=== PATIENT | female | born 1965 | race Caucasian/White ===

== ENCOUNTER → 2016-09-03 | Outpatient (CLI) | payer OTHER ==
--- NOTE | 2016-09-04 07:55 | XR ---
EXAMINATION TYPE: XR chest 2V DATE OF EXAM: 09/03/2016 3:50 PM COMPARISON: NONE HISTORY: Chest pain FINDINGS: The lungs are clear and there is no pneumothorax, pleural effusion, or focal pneumonia. Hypertrophi c and degenerative change of the spine noted. IMPRESSION: 1. No acute process.
== END | disposition home or self-care (01) ==
LOC: RADXRYALE 15:37
PROVIDERS: ATTEND Physician Assistant Medical
DX: R07.9 Chest pain, unspecified (principal)
CPT/HCPCS: 71020

== ENCOUNTER 2016-10-08 20:52 | Emergency (ER) | payer OTHER ==
[2016-10-08 21:57] VITALS: PULSE 72; TEMP 99.4
--- NOTE | 2016-10-08 22:06 | ED ---
General Adult HPI - General Chief complaint: Skin/Abscess/Foreign Body Stated complaint: Rash/Hand Time Seen by Provider: 10/08/16 21:55 Source: patient, RN notes reviewed Mode of arrival: ambulatory Limitations: no limitations - History of Present Illness Initial comments: This is a 50-year-old female presents with palmar erythema and pruritus extending to bilateral wrists 2 days. Patient states she noticed her palms were itchy yesterday and woke up today with her hands being swollen and slightly red on the palms and still itchy. Patient states she noticed the redness has spread to bilateral wrists on the volar side. Patient also noticed that she has some mild pain with swallowing. Patient denies any fever/chills, nausea/vomiting/diarrhea, shortness of breath. Patient denies any new medications, detergents or work exposures. Patient states the only thing new she tried was a new lotion 2 days ago. Patient states she has been taking Benadryl for this with no improvement. Patient's last dose of Benadryl was 7 PM tonight. Patient denies any recent fever, chills, shortness breath, chest pain, abdominal pain, nausea/vomiting/diarrhea, back pain, numbness, tingling, hematuria, headache, or visual changes, or any other complaints. - Related Data Home Medications Medication Instructions Recorded Confirmed Aspirin [Adult Low Dose Aspirin EC] 81 mg PO DAILY 10/08/16 10/08/16 Atorvastatin [Lipitor] 80 mg PO DAILY 10/08/16 10/08/16 Isosorbide Mononitrate ER [Imdur] 30 mg PO DAILY 10/08/16 10/08/16 Metoprolol Tartrate [Metoprolol 25 mg PO BID 10/08/16 10/08/16 Tartrate] Previous Rx's Medication Instructions Recorded Famotidine [Pepcid] 20 mg PO DAILY 3 Days 10/08/16 diphenhydrAMINE HCL [Benadryl] 25 mg PO TID 3 Days 10/08/16 predniSONE 20 mg PO DAILY 5 Days 10/08/16 Allergies Allergy/AdvReac Type Severity Reaction Status Date / Time cephalexin [From Keflex] Allergy Unknown Verified 10/08/16 21:57 Penicillins Allergy Rash/Hives Verified 10/08/16 21:57 Review of Systems ROS Statement: Those systems with pertinent positive or pertinent negative responses have been documented in the HPI. ROS Other: All systems not noted in ROS Statement are negative. Past Medical History Past Medical History: Hyperlipidemia, Hypertension History of Any Multi-Drug Resistant Organisms: None Reported Past Surgical History: Section, Orthopedic Surgery Past Psychological History: No Psychological Hx Reported Smoking Status: Current every day smoker Past Alcohol Use History: Rare Past Drug Use History: None Reported General Exam - General Exam Comments Initial Comments: General: The patient is awake and alert, in no distress, and does not appear acutely ill. Eye: Pupils are equal, round and reactive to light, extra-ocular movements are intact. No nystagmus. There is normal conjunctiva bilaterally. No signs of icterus. Ears: TMs pink and pearly with intact cone of light bilaterally. Normal external ear canals Nose: Nasal turbinates pink and moist Mouth and throat: There are moist mucous membranes and no oral lesions. Neck: The neck is supple, there is no tenderness or JVD. Cardiovascular: There is a regular rate and rhythm. No murmur, rub or gallop is appreciated. Respiratory: Lungs are clear to auscultation, respirations are non-labored, breath sounds are equal. No wheezes, stridor, rales, or rhonchi. Musculoskeletal: Normal ROM, no tenderness. Strength 5/5. Sensation intact. Radial Pulses equal bilaterally 2+. Neurological: A&O x 3. CN II-XII intact, There are no obvious motor or sensory deficits. Coordination appears grossly intact. Speech is normal. Skin: There is erythema to bilateral palms, erythema to the volar aspect of bilateral wrists, there are raised areas on the volar aspects of bilateral wrists that resemble urticaria. The areas of erythema are warm to touch and mildly tender. Skin is warm and dry. Psychiatric: Cooperative, appropriate mood & affect, normal judgment. Limitations: no limitations Course Vital Signs 10/08/16 21:54 Temperature 99.4 F Pulse Rate 72 Respiratory 18 Rate Blood Pressure 150/72 O2 Sat by Pulse 99 Oximetry Medical Decision Making - Medical Decision Making This is a 50 female presents with bilateral hand swelling and pruritus. On physical exam There is erythema to bilateral palms, erythema to the volar aspect of bilateral wrists, there are raised areas on the volar aspects of bilateral wrists that resemble urticaria. The areas of erythema are warm to touch and mildly tender. Skin is warm and dry. Patient was given Solu-Medrol, Benadryl and Pepcid IV and observed for worsening symptoms. Patient states she felt that the swelling and itching had decreased after these medications were given. Patient did not develop any shortness of breath or increased throat irritation during this time of observation. I discussed that patient will be sent home with a prescription for Benadryl, prednisone and Pepcid for the next 3 days. I discussed return parameters. I discussed avoidance of the possible trigger of a new lotion the patient used. I discussed cool soaks to the hands for itching. I discussed the patient should follow-up with her primary care physician in the next 1-2 days or return to the [facility] for any worsening symptoms or for any further concerns. Patient and her who was also present in the room were receptive to this plan and patient will be discharged home. I discussed this case with attending physician Dr. Yip who agrees with plan as stated above. Disposition Clinical Impression: Allergic reaction Disposition: HOME SELF-CARE Condition: Good Instructions: Urticaria (ED) Additional Instructions: Please use Benadryl, prednisone and Pepcid as prescribed. Please follow-up with family doctor in the next 2 days of symptoms have not improved. Please return to emergency room if the symptoms increase or worsen or for any other concerns. Prescriptions: Famotidine [Pepcid] 20 mg PO DAILY 3 Days diphenhydrAMINE HCL [Benadryl] 25 mg PO TID 3 Days predniSONE 20 mg PO DAILY 5 Days Time of Disposition: 23:59
[2016-10-08] MEDS ORDERED: diphenhydrAMINE 50 MG/ML 1 ML VIAL IVP STA (22:13)
[2016-10-08] MEDS ORDERED: methylPREDNISolone SOD SUCCI 125 MG/2 ML VIAL IV STA (22:13)
[2016-10-08] MEDS ORDERED: FAMOTIDINE 20 MG/2 ML VIAL IV STA (22:14)
[2016-10-09 00:17] VITALS: BP 125/58; RESP 16
== END 2016-10-09 00:15 | disposition home or self-care (01) ==
LOC: EC 20:52
DX: T78.40XA Allergy, unspecified, initial encounter (principal); L50.9 Urticaria, unspecified; X58.XXXA Exposure to other specified factors, initial encounter; I10 Essential (primary) hypertension; E78.5 Hyperlipidemia, unspecified; F17.200 Nicotine dependence, unspecified, uncomplicated; Z88.1 Allergy status to other antibiotic agents; Z79.899 Other long term (current) drug therapy; Z79.82 Long term (current) use of aspirin; Z88.0 Allergy status to penicillin
CPT/HCPCS: 99283; 96374; 96375; J1200; J2930

== ENCOUNTER 2016-10-10 18:13 | Emergency (ER) | payer OTHER ==
--- NOTE | 2016-10-10 20:58 | ED ---
Allergic Reaction HPI - General Chief complaint: Allergic Reaction Stated complaint: allergic reaction Time Seen by Provider: 10/10/16 20:23 Source: patient, RN notes reviewed Mode of arrival: ambulatory Limitations: no limitations - History of Present Illness Initial Comments: Patient is a 50-year-old female presents to the emergency room for evaluation of rash. Patient states on she tried a new lotion from [employer]. Patient states a few hours later both her palms became very itchy. Patient states throughout the day her bilateral hands became more and more swollen. Patient states that she came to the emergency room was given IV Solu- Medrol, Benadryl and Pepcid. Patient states the swelling subsided and she was sent home. Patient states that again her hands began swelling today so she went to her primary care provider. Patient states she was given an injection of steroids and was told that if the rash worsens to return to the emergency room. Patient also states she was placed on a prednisone taper for the next 2 weeks. Patient states her rash is now traveled up bilateral arms and on the back of her bilateral legs. Patient states she's tried cortisone cream and calamine lotion. Patient states the rash is very warm and itchy and irritating her. Patient denies new detergents, shampoos, medications. Patient denies any new plants or animals being introduced into the household. Patient denies new medications. Patient has shortness of breath, trouble breathing, headache, dizziness, chest pain, fevers, chills. - Related Data Home Medications Medication Instructions Recorded Confirmed Aspirin [Adult Low Dose Aspirin EC] 81 mg PO DAILY 10/08/16 10/08/16 Atorvastatin [Lipitor] 80 mg PO DAILY 10/08/16 10/08/16 Isosorbide Mononitrate ER [Imdur] 30 mg PO DAILY 10/08/16 10/08/16 Metoprolol Tartrate [Metoprolol 25 mg PO BID 10/08/16 10/08/16 Tartrate] Previous Rx's Medication Instructions Recorded Famotidine [Pepcid] 20 mg PO DAILY 3 Days 10/08/16 diphenhydrAMINE HCL [Benadryl] 25 mg PO TID 3 Days 10/08/16 predniSONE 20 mg PO DAILY 5 Days 10/08/16 hydrOXYzine HCL [Atarax] 25 mg PO QID PRN #30 tab 10/10/16 Allergies Allergy/AdvReac Type Severity Reaction Status Date / Time cephalexin [From Keflex] Allergy Unknown Verified 10/10/16 18:30 Penicillins Allergy Rash/Hives Verified 10/10/16 18:30 Review of Systems ROS Statement: Those systems with pertinent positive or pertinent negative responses have been documented in the HPI. ROS Other: All systems not noted in ROS Statement are negative. Past Medical History Past Medical History: Hyperlipidemia, Hypertension History of Any Multi-Drug Resistant Organisms: None Reported Past Surgical History: Section, Orthopedic Surgery Past Psychological History: No Psychological Hx Reported Smoking Status: Current every day smoker Past Alcohol Use History: Rare Past Drug Use History: None Reported General Exam - General Exam Comments Initial Comments: Sitting in exam room in no acute distress. Limitations: no limitations General appearance: alert, in no apparent distress Head exam: Present: atraumatic, normocephalic, normal inspection Eye exam: Present: normal appearance ENT exam: Present: normal exam Neck exam: Present: normal inspection Respiratory exam: Present: normal lung sounds bilaterally. Absent: respiratory distress Cardiovascular Exam: Present: regular rate, normal rhythm, normal heart sounds Back exam: Present: normal inspection Neurological exam: Present: alert, oriented X3, CN II-XII intact, normal gait Psychiatric exam: Present: normal affect, normal mood Skin exam: Present: erythema (Erythematous patches over bilateral arms and bilateral posterior portion of her legs) Course Vital Signs 10/10/16 10/10/16 18:28 22:00 Temperature 97.5 F L 98.7 F Pulse Rate 69 66 Respiratory 20 18 Rate Blood Pressure 126/64 123/61 O2 Sat by Pulse 98 96 Oximetry Medical Decision Making - Medical Decision Making Patient is a 50-year-old female presents to the emergency room for reevaluation of rash. Patient is already on a prednisone taper. Will switch patient from Benadryl to Atarax. Patient states she understands everything was discussed with her. Return parameters discussed. Disposition Clinical Impression: Contact dermatitis Disposition: HOME SELF-CARE Condition: Good Instructions: Contact Dermatitis (ED) Additional Instructions: Continue prednisone taper as directed. Begin taking Atarax as needed. Please follow up with primary care provider in 1-2 days. If any new symptom arises, symptoms worsen or fever develops, return to ER as soon as possible. Prescriptions: hydrOXYzine HCL [Atarax] 25 mg PO QID PRN #30 tab PRN Reason: Itching Referrals: Jamison Mercado DO [Primary Care Provider] - 1-2 days Time of Disposition: 21:46
[2016-10-10] MEDS ORDERED: hydrOXYzine HCL 25 MG TAB PO STA (21:06)
[2016-10-10 22:08] VITALS: BP 123/61; PULSE 66; RESP 18; TEMP 98.7
== END 2016-10-10 22:00 | disposition home or self-care (01) ==
LOC: EC 18:13
DX: L25.9 Unspecified contact dermatitis, unspecified cause (principal); E78.5 Hyperlipidemia, unspecified; I10 Essential (primary) hypertension; F17.200 Nicotine dependence, unspecified, uncomplicated; Z79.82 Long term (current) use of aspirin; Z79.899 Other long term (current) drug therapy; Z88.0 Allergy status to penicillin; Z88.1 Allergy status to other antibiotic agents
CPT/HCPCS: 99283

== ENCOUNTER 2016-10-12 11:08 | Emergency (ER) | payer OTHER ==
[2016-10-12] MEDS ORDERED: SODIUM CHLORIDE 0.9% 1,000 ML IV ONE (11:29)
[2016-10-12] MEDS ORDERED: METOCLOPRAMIDE 5 MG/ML 2 ML VIAL IVP STA (11:29)
[2016-10-12] MEDS ORDERED: methylPREDNISolone SOD SUCCI 125 MG/2 ML VIAL IV STA (11:29)
[2016-10-12] MEDS ORDERED: FAMOTIDINE 20 MG/2 ML VIAL IV STA (11:29)
--- NOTE | 2016-10-12 11:36 | ED ---
General Adult HPI - General Chief complaint: Allergic Reaction Stated complaint: Allergic Reaction Time Seen by Provider: 10/12/16 11:21 Source: patient Mode of arrival: EMS Limitations: no limitations - History of Present Illness Initial comments: This is a 50-year-old female who presents emergency department for hives, nausea , vomiting, and headache. She states that she's had the symptoms for the last 5 days. [facility] emergency department twice already for the rash and was diagnosed with ALLERGIC reaction. She states that she is not aware of what she is ALLERGIC to. She is ALLERGIC to penicillins however has not ingested any of these. She's been on steroids for the last 5 days. She's also been using Benadryl as needed. This morning she woke up at the rash again and then started developing headache, nausea, and vomiting. She's had come emergency department. She was given Benadryl and Zofran EMS rig which seemed to improve her symptoms mildly however she still is a little bit nausea. She denies any itching. She denies any difficulty with breathing or throat closing. She does admit to some mild epigastric abdominal pain. No dysuria or hematuria. No sick contacts. No recent travel. No other complaints. - Related Data Home Medications Medication Instructions Recorded Confirmed Aspirin [Adult Low Dose Aspirin EC] 81 mg PO DAILY 10/08/16 10/12/16 Atorvastatin [Lipitor] 80 mg PO HS 10/08/16 10/12/16 Isosorbide Mononitrate ER [Imdur] 30 mg PO DAILY 10/08/16 10/12/16 Metoprolol Tartrate [Metoprolol 25 mg PO BID 10/08/16 10/12/16 Tartrate] Multivit-Min/Fe Fum/FA/Vit K 1 cap PO DAILY 10/12/16 10/12/16 [Women's Multivatimin] Ranitidine HCl [Zantac] 150 mg PO BID 10/12/16 10/12/16 predniSONE See Taper PO DIRECTED 10/12/16 10/12/16 Previous Rx's Medication Instructions Recorded hydrOXYzine HCL [Atarax] 25 mg PO QID PRN #30 tab 10/10/16 Ondansetron Odt [Zofran Odt] 4 mg PO Q8HR PRN #15 tab 10/12/16 Allergies Allergy/AdvReac Type Severity Reaction Status Date / Time cephalexin [From Keflex] Allergy Rash/Hives Verified 10/12/16 12:11 Penicillins Allergy Rash/Hives Verified 10/12/16 12:11 Review of Systems ROS Statement: Those systems with pertinent positive or pertinent negative responses have been documented in the HPI. ROS Other: All systems not noted in ROS Statement are negative. Past Medical History Past Medical History: Hyperlipidemia, Hypertension History of Any Multi-Drug Resistant Organisms: None Reported Past Surgical History: Section, Orthopedic Surgery Past Psychological History: No Psychological Hx Reported Smoking Status: Current every day smoker Past Alcohol Use History: Rare Past Drug Use History: None Reported General Exam - General Exam Comments Initial Comments: Constitutional: Awake alert Appears comfortable Head: Normocephalic atraumatic Eyes: no conjunctival injection No scleral icterus EOMI, ENT: Oropharynx is nonedematous or erythematous Neck: No JVD Supple Heart: Regular rate rhythm normal S1-S2 no murmurs Lungs: Clear to auscultation bilaterally No wheezing No rales Abdomen: Soft nondistended nontender Extremities: Non edematous DP pulses intact Radial pulses intact, there are urticaria on bilateral upper and lower extremities Neuro: A&Ox3 No focal neurologic deficits Psych: Appropriate mood and affect Limitations: no limitations Course Vital Signs 10/12/16 10/12/16 11:15 14:06 Temperature 97.6 F 100.4 F H Pulse Rate 79 58 L Respiratory 16 18 Rate Blood Pressure 113/57 105/55 O2 Sat by Pulse 95 98 Oximetry Medical Decision Making - Medical Decision Making Is a 50-year-old female presents emergency department for hives, nausea, vomiting. Patient was evaluated with blood work which is unremarkable. Urinalysis was negative. She felt improved after medications in the ER and tolerated by mouth. At this time I feel the patient may not actually be suffering from an ALLERGIC reaction may be suffering from a viral illness. She did have a mild temperature upon discharge. I told her to continue with Motrin Tylenol, steroids, Benadryl, and I gave her Zofran that she can use as needed for vomiting. She is follow up closely with her primary doctor. She will return if she has worsening symptoms. All questions were answered. - Lab Data Result diagrams: 10/12/16 11:45 10/12/16 11:45 Lab Results 10/12/16 10/12/16 10/12/16 Range/Units 11:45 11:45 11:45 WBC 11.0 H (3.8-10.6) k/uL RBC 4.80 (3.80-5.40) m/uL Hgb 15.5 (11.4-16.0) gm/dL Hct 45.7 (34.0-46.0) % MCV 95.2 (80.0-100.0) fL MCH 32.4 (25.0-35.0) pg MCHC 34.0 (31.0-37.0) g/dL RDW 12.9 (11.5-15.5) % Plt Count 321 (150-450) k/uL Neutrophils % 86 % Lymphocytes % 11 % Monocytes % 1 % Eosinophils % 1 % Basophils % 0 % Neutrophils # 9.4 H (1.3-7.7) k/uL Lymphocytes # 1.2 (1.0-4.8) k/uL Monocytes # 0.1 (0-1.0) k/uL Eosinophils # 0.1 (0-0.7) k/uL Basophils # 0.0 (0-0.2) k/uL Sodium 141 (137-145) mmol/L Potassium 4.1 (3.5-5.1) mmol/L Chloride 107 (98-107) mmol/L Carbon Dioxide 26 (22-30) mmol/L Anion Gap 8 mmol/L BUN 22 H (7-17) mg/dL Creatinine 0.81 (0.52-1.04) mg/dL Est GFR (MDRD) Af Amer >60 (>60 ml/min/1.73 sqM) Est GFR (MDRD) Non-Af >60 (>60 ml/min/1.73 sqM) Glucose 122 H (74-99) mg/dL Calcium 8.4 (8.4-10.2) mg/dL Total Bilirubin 1.3 (0.2-1.3) mg/dL AST 14 (14-36) U/L ALT 34 (9-52) U/L Alkaline Phosphatase 72 (38-126) U/L Total Protein 6.1 L (6.3-8.2) g/dL Albumin 3.3 L (3.5-5.0) g/dL Amylase <30 L (30-110) U/L Lipase 19 L (23-300) U/L Urine Color Urine Appearance (Clear) Urine pH (5.0-8.0) Ur Specific Sparks (1.001-1.035) Urine Protein (Negative) Urine Glucose (UA) (Negative) Urine Ketones (Negative) Urine Blood (Negative) Urine Nitrate (Negative) Urine Bilirubin (Negative) Urine Urobilinogen (<2.0) mg/dL Ur Leukocyte Esterase (Negative) Urine RBC (0-5) /hpf Urine WBC (0-5) /hpf Ur Squamous Epith Cells (0-4) /hpf Urine Bacteria (None) /hpf Urine Mucus (None) /hpf 10/12/16 Range/Units 12:33 WBC (3.8-10.6) k/uL RBC (3.80-5.40) m/uL Hgb (11.4-16.0) gm/dL Hct (34.0-46.0) % MCV (80.0-100.0) fL MCH (25.0-35.0) pg MCHC (31.0-37.0) g/dL RDW (11.5-15.5) % Plt Count (150-450) k/uL Neutrophils % % Lymphocytes % % Monocytes % % Eosinophils % % Basophils % % Neutrophils # (1.3-7.7) k/uL Lymphocytes # (1.0-4.8) k/uL Monocytes # (0-1.0) k/uL Eosinophils # (0-0.7) k/uL Basophils # (0-0.2) k/uL Sodium (137-145) mmol/L Potassium (3.5-5.1) mmol/L Chloride (98-107) mmol/L Carbon Dioxide (22-30) mmol/L Anion Gap mmol/L BUN (7-17) mg/dL Creatinine (0.52-1.04) mg/dL Est GFR (MDRD) Af Amer (>60 ml/min/1.73 sqM) Est GFR (MDRD) Non-Af (>60 ml/min/1.73 sqM) Glucose (74-99) mg/dL Calcium (8.4-10.2) mg/dL Total Bilirubin (0.2-1.3) mg/dL AST (14-36) U/L ALT (9-52) U/L Alkaline Phosphatase (38-126) U/L Total Protein (6.3-8.2) g/dL Albumin (3.5-5.0) g/dL Amylase (30-110) U/L Lipase (23-300) U/L Urine Color Yellow Urine Appearance Clear (Clear) Urine pH 6.0 (5.0-8.0) Ur Specific [place] 1.020 (1.001-1.035) Urine Protein Trace H (Negative) Urine Glucose (UA) Negative (Negative) Urine Ketones Negative (Negative) Urine Blood Trace H (Negative) Urine Nitrate Negative (Negative) Urine Bilirubin Negative (Negative) Urine Urobilinogen <2.0 (<2.0) mg/dL Ur Leukocyte Esterase Moderate H (Negative) Urine RBC 3 (0-5) /hpf Urine WBC 2 (0-5) /hpf Ur Squamous Epith Cells 3 (0-4) /hpf Urine Bacteria Rare H (None) /hpf Urine Mucus Occasional H (None) /hpf Disposition Clinical Impression: Viral syndrome, Acute urticaria Disposition: HOME SELF-CARE Condition: Stable Instructions: Acute Nausea and Vomiting (ED), Urticaria (ED) Prescriptions: Ondansetron Odt [Zofran Odt] 4 mg PO Q8HR PRN #15 tab PRN Reason: Nausea Referrals: Jamison Mercado DO [Primary Care Provider] - 1-2 days
[2016-10-12 11:55] LABS: Basophils % (A) 0 %; CH 33.1; CHCM 34.8; Eosinophils # (A) 0.1 k/uL (0-0.7); Eosinophils % (A) 1 %; HCT 45.7 % (34.0-46.0); HDW 2.36; HGB 15.5 gm/dL (11.4-16.0); Luc # (Auto) 0.06; Luc % (Auto) 1; Lymphocytes # (A) 1.2 k/uL (1.0-4.8); Lymphocytes % (A) 11 %; MCH 32.4 pg (25.0-35.0); MCV 95.2 fL (80.0-100.0); Mean Platelet Volume 6.8; Monocytes # (A) 0.1 k/uL (0-1.0); Monocytes % (A) 1 %; Neutrophils # (A) 9.4 k/uL (1.3-7.7); Neutrophils % (A) 86 %; RDW 12.9 % (11.5-15.5); WBC (Perox) 11.06
[2016-10-12 12:09] LABS: ALT 34 U/L (9-52); AST 14 U/L (14-36); Alkaline Phosphatase 72 U/L (38-126); Anion Gap 8 mmol/L; Blood Urea Nitrogen 22 mg/dL (7-17); Calcium 8.4 mg/dL (8.4-10.2); Carbon Dioxide 26 mmol/L (22-30); Chloride 107 mmol/L (98-107); Glucose 122 mg/dL (74-99); Non-African American GFR(MDRD) >60 (>60 ml/min/1.73 sqM); Potassium 4.1 mmol/L (3.5-5.1); Sodium 141 mmol/L (137-145); Total Bilirubin 1.3 mg/dL (0.2-1.3); Total Protein 6.1 g/dL (6.3-8.2)
[2016-10-12 13:01] LABS: Appearance,Urine Clear (Clear); Bacteria,Urine Rare /hpf; Bilirubin,Urine Negative (Negative); Glucose,Urine (UA) Negative (Negative); Ketones,Urine Negative (Negative); Leukocyte Esterase,Urine Moderate (Negative); Mucus,Urine Occasional /hpf; Nitrite,Urine Negative (Negative); Particle Count 5132; Protein,Urine Trace (Negative); RBC,Urine 3 /hpf (0-5); Squamous Epithelial Cell,Urine 3 /hpf (0-4); UA Billing (MACRO vs. MICRO) MICRO; Urobilinogen,Urine <2.0 mg/dL (<2.0); WBC,Urine 2 /hpf (0-5)
[2016-10-12 14:09] VITALS: BP 105/55; PULSE 58; RESP 18; TEMP 100.4
== END 2016-10-12 14:06 | disposition home or self-care (01) ==
LOC: EC 11:08
DX: L50.9 Urticaria, unspecified (principal); B34.9 Viral infection, unspecified; R11.2 Nausea with vomiting, unspecified; R51 Headache; E78.5 Hyperlipidemia, unspecified; I10 Essential (primary) hypertension; F17.200 Nicotine dependence, unspecified, uncomplicated; Z79.82 Long term (current) use of aspirin; Z79.52 Long term (current) use of systemic steroids; Z79.899 Other long term (current) drug therapy
CPT/HCPCS: 99284; 96374; 96375 ×2; 96361; 36415; 80053; 82150; 83690; 85025; 81001; J2765; J2930

== ENCOUNTER → 2016-10-15 | Outpatient (CLI) | payer OTHER ==
[2016-10-16 08:17] LABS: Mis test requested (Blood) Glycerine IgE
[2016-10-16 13:38] LABS: Avocado Class CLASS 0; Banana IgE Class CLASS 0; Hazelnut IgE <0.35 kU/L (<0.35); Hazelnut IgE Class CLASS 0; Kiwi IgE <0.35 kU/L (<0.35); Kiwi IgE Class CLASS 0
[2016-10-16 13:39] LABS: Alternaria alternata IgE <0.35 kU/L (<0.35); Asperg. fumagatus IgE <0.35 kU/L (<0.35); Asperg. fumagatus IgE Class CLASS 0; Aureo. pullulans IgE <0.35 kU/L (<0.35); Birch(Com.Silvr) IgE Class CLASS 0; Candida albicans IgE Class CLASS 0; Cat Epith & Dander IgE <0.35 kU/L (<0.35); Cat Epith & Dander IgE Class CLASS 0; Clad herbarum IgE <0.35 kU/L (<0.35); Clad herbarum IgE Class CLASS 0; Com. Pigweed IgE <0.35 kU/L (<0.35); Com. Pigweed IgE Class CLASS 0; Common Ragweed IgE Class CLASS 0; Dermato. Pteronyssinus Class CLASS 0; Dermato. Pteronyssinus IgE <0.35 kU/L (<0.35); Dermato. farinae IgE <0.35 kU/L (<0.35); Dermato. farinae IgE Class CLASS 0; English Plantain IgE Class CLASS 0; Epicoccum purpurascens Class CLASS II; Epicoccum purpurascens IgE 0.76 kU/L (<0.35); Johnson Grass IgE Class CLASS 0; Lamb's Quarter IgE <0.35 kU/L (<0.35); Lamb's Quarter IgE Class CLASS 0; Maple (Box Elder) IgE <0.35 kU/L (<0.35); Maple (Box Elder) IgE Class CLASS 0; Mucor racemosus IgE 1.82 kU/L (<0.35); Mucor racemosus IgE Class CLASS II; Oak IgE <0.35 kU/L (<0.35); Rhizopus nigricans IgE 0.85 kU/L (<0.35); Rhizopus nigricans IgE Class CLASS II; S.rostrata/Helminth Class CLASS 0; S.rostrata/Helminth IgE <0.35 kU/L (<0.35); Sycamore(Mpl.Lf) IgE <0.35 kU/L (<0.35); Sycamore(Mpl.Lf) IgE Class CLASS 0; Timothy Grass IgE <0.35 kU/L (<0.35); Timothy Grass IgE Class CLASS 0; Walnut Tree IgE <0.35 kU/L (<0.35); White Ash IgE Class CLASS 0
== END | disposition home or self-care (01) ==
LOC: LABWHC1 14:23
PROVIDERS: ATTEND Otolaryngology
DX: J30.89 Other allergic rhinitis (principal); B44.89 Other forms of aspergillosis; D84.1 Defects in the complement system
CPT/HCPCS: 36415; 86003; 86160; 86161

== ENCOUNTER → 2017-02-09 | Outpatient (CLI) | payer OTHER ==
--- NOTE | 2017-02-09 11:18 | WWHP ---
DATE OF SERVICE: 02/09/2017 CHIEF COMPLAINT: The patient is here for her routine gynecologic exam and mammogram. HPI: This is a 51-year-old, G2, P2 with an LMP of 2014. The patient is without gynecologic complaints. PAST MEDICAL HISTORY: Elevated cholesterol and coronary artery disease. MEDICATIONS: 1. Aspirin 81 mg daily. 2. Imdur 30 mg daily. 3. Metoprolol tartrate 25 mg b.i.d. 4. Atorvastatin 80 mg daily. Allergies to PENICILLIN which caused hives. 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 SOCIAL HISTORY: She smokes about 1/2 pack of cigarettes per day. She has about 6 alcohol -containing drinks per month and denies drug use. She has been since 1988 and works at the [employer] FAMILY HISTORY: Sister was recently diagnosed with lung cancer. She has another sister who had breast cancer and mother who had ovarian and breast cancer. Paternal grandmother had heart disease. REVIEW OF SYSTEMS: She has gained 5 pounds over the last year. She denies respiratory, cardiac or GI problems. PHYSICAL EXAM: Blood pressure 116/75. Height 5 feet 4 inches. Weight 207 pounds. Temperature 98.5, pulse 56. This a well-developed, well-nourished white female who is alert and oriented x3 in no acute distress. HEENT is within normal limits. NECK: Supple without mass or thyromegaly. CHEST AND LUNGS: Clear to auscultation. HEART: Regular rate and rhythm. Breasts are without mass or discharge. Axillary exam is negative for adenopathy. BACK: Negative for CVA tenderness. ABDOMEN: Soft, nontender, without palpable masses. PELVIC EXAM: External genitalia reveals minimal atrophy without lesions. Cervix and vagina reveal minimal atrophy without lesions. There is no evidence of prolapse. The uterus is midposition, nongravid size and nontender. There are no palpable adnexal masses or tenderness. Rectovaginal exam is negative for mass or tenderness and is negative for occult blood. EXTREMITIES: Nontender. IMPRESSION: 1. A 51-year-old postmenopausal female with normal gynecologic exam. 2. Increased risk for breast and ovarian cancer because of her family history. PLAN: 1. Pap smear was deferred, since she had a normal one last year. 2. Self breast examination was discussed. 3. Mammogram will be done today. 4. We again have discussed possible genetic testing because of her family history of breast and ovarian cancer. She has decided not to do this type of counseling and testing. She will let me know if she changes her mind. 5. I have recommended that she quit smoking and I have given her several reasons why she should do this. 6. Osteoporosis prevention was discussed. 7. She will return in one year.
--- NOTE | 2017-02-10 12:51 | MM ---
Reason for exam: screening (asymptomatic). Last mammogram was performed 1 year and 2 months ago. History: Patient is postmenopausal. Family history of breast cancer in sister at age 44 and premenopausal breast cancer in mother at age 50. Physical Findings: A clinical breast exam by your physician is recommended on an annual basis and results should be correlated with mammographic findings. MG Screening Mammo w CAD Bilateral CC and MLO view(s) were taken. Prior study comparison: December 17, 2015, bilateral MG screening mammo w CAD. December 15, 2013, bilateral digital screening mammo w/CAD. The breast tissue is heterogeneously dense. This may lower the sensitivity of mammography. No significant changes when compared with prior studies. ASSESSMENT: Benign, BI-RAD 2 RECOMMENDATION: Routine screening mammogram of both breasts in 1 year.
== END | disposition home or self-care (01) ==
LOC: WWCWWP 09:52
PROVIDERS: ATTEND Obstetrics & Gynecology
DX: Z12.31 Encounter for screening mammogram for malignant neoplasm of breast (principal)

== ENCOUNTER → 2018-05-11 | Outpatient (CLI) | payer OTHER ==
--- NOTE | 2018-05-12 06:57 | US ---
EXAMINATION TYPE: US pelvic complete DATE OF EXAM: 05/11/2018 COMPARISON: NONE CLINICAL HISTORY: Z80.41 Family Hx Ovarian Ca. TECHNIQUE: Transabdominal (TA). Transabdominal sonographic images of the pelvis were acquired. Date of LMP: Patient was 48 (4 years prior). EXAM MEASUREMENTS: Uterus: 9.5 x 4.3 x 4.0 cm Endometrial Stripe: 0.3 cm Right Ovary: 2.2 x 1.6 x 1.8cm Left Ovary: 2.3 x 1.8 x 1.8 cm 1. Uterus: fibroid measuring 1.7 x 1.9 x 1.8cm 2. Endometrium: wnl 3. Right Ovary: wnl 4. Left Ovary: wnl 5. Bilateral Adnexa: wnl 6. Posterior cul-de-sac: wnl Transabdominal pelvic ultrasound shows 1.9 cm hypoechoic lesion in the uterine fundus posteriorly abu tting the endometrial stripe. Remainder of study is unremarkable. IMPRESSION: No suspicious ovarian or adnexal masses identified on transabdominal pelvic ultrasound.
== END ==
LOC: RADUSWWP 16:02
PROVIDERS: ATTEND Obstetrics & Gynecology
DX: Z12.73 Encounter for screening for malignant neoplasm of ovary (principal); Z80.41 Family history of malignant neoplasm of ovary
CPT/HCPCS: 76856

== ENCOUNTER 2019-02-12 14:37 | Inpatient (IN) | payer OTHER ==
[2019-02-12] MEDS ORDERED: NITROGLYCERIN SL TABS 0.4 MG TAB SUBLINGUAL PRN (14:55)
[2019-02-12] MEDS ORDERED: ASPIRIN 81 MG PO STA (14:56)
--- NOTE | 2019-02-12 14:59 | ED ---
Chest Pain HPI - General Chief Complaint: Chest Pain Stated Complaint: Chest pain Time Seen by Provider: 02/12/19 14:49 Source: family Mode of arrival: ambulatory Limitations: no limitations - History of Present Illness Initial Comments: Patient is a 53-year-old female with a history of coronary artery disease, hypertension, high cholesterol, current smoker who presents with chief complaint of chest pain. His going on for 3 days. She characterizes the pressure in her chest radiation to the left arm. She admits to nausea and diaphoresis over the last 3 days. She now identify inciting incident. She denies any aggravating or alleviating factors. Timing is constant. Patient states that she had a cardiac catheterization about 10 years ago, at a time she was told that she did have coronary artery disease however there were no lesions large enough to stent. - Related Data Home Medications Medication Instructions Recorded Confirmed Aspirin [Adult Low Dose Aspirin EC] 81 mg PO DAILY 10/08/16 02/12/19 Atorvastatin [Lipitor] 80 mg PO HS 10/08/16 02/12/19 Isosorbide Mononitrate ER [Imdur] 30 mg PO DAILY 10/08/16 02/12/19 Metoprolol Tartrate 25 mg PO BID 10/08/16 02/12/19 Ranitidine HCl [Zantac] 150 mg PO BID 10/12/16 02/12/19 Cholecalciferol (Vitamin D3) 2,000 unit PO DAILY 02/12/19 02/12/19 [Vitamin D3] Niacin [Niaspan] 500 mg PO DAILY 02/12/19 02/12/19 Sertraline [Zoloft] 100 mg PO DAILY 02/12/19 02/12/19 Allergies Allergy/AdvReac Type Severity Reaction Status Date / Time cephalexin [From Keflex] Allergy Rash/Hives Verified 05/03/18 08:59 Penicillins Allergy Rash/Hives Verified 05/03/18 08:59 Review of Systems ROS Statement: Those systems with pertinent positive or pertinent negative responses have been documented in the HPI. ROS Other: All systems not noted in ROS Statement are negative. 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 History of Any Multi-Drug Resistant Organisms: None Reported Past Surgical History: Section, Heart Catheterization, Orthopedic Surgery Additional Past Surgical History / Comment(s): Colonoscopy 01/09/2016. Past Psychological History: No Psychological Hx Reported Smoking Status: Current every day smoker Past Alcohol Use History: Occasional Past Drug Use History: None Reported - Past Family History Mother Family Medical History: Cancer (Ovarian and breast cancer) Sister(s) Family Medical History: Cancer (Breast cancer) Additional Family Medical History / Comment(s): Another sister had lung cancer. General Exam Limitations: no limitations General appearance: alert, in no apparent distress Head exam: Present: atraumatic, normocephalic Eye exam: Present: normal appearance ENT exam: Present: normal exam Neck exam: Present: normal inspection Respiratory exam: Present: normal lung sounds bilaterally. Absent: respiratory distress Cardiovascular Exam: Present: regular rate, normal rhythm GI/Abdominal exam: Present: soft. Absent: distended, tenderness Rectal exam: Present: deferred Extremities exam: Present: normal inspection Back exam: Present: normal inspection Neurological exam: Present: alert, oriented X3 Psychiatric exam: Present: normal affect, normal mood Skin exam: Present: warm, dry, intact Course Vital Signs 02/12/19 02/12/19 02/12/19 14:39 15:10 15:30 Temperature 98.2 F Pulse Rate 58 L 57 L 55 L Respiratory 18 20 20 Rate Blood Pressure 178/91 163/73 163/73 O2 Sat by Pulse 97 98 Oximetry 02/12/19 16:00 Temperature Pulse Rate 57 L Respiratory 18 Rate Blood Pressure 157/88 O2 Sat by Pulse 96 Oximetry Chest Pain [facility] Patient presents with a chief complaint of chest pain for 3 days. On initial evaluation, vitals are stable, patient is in no acute distress. EKG performed at 1449 shows sinus bradycardia with a rate of 58 bpm, segments are within normal limits, no acute signs of ischemia. Patient states that she took 3 baby aspirin's today, she will be given one more. She was given nitroglycerin or chest pain. She will be evaluated with basic labs including chest x-ray and cardiac enzymes. Patient will be admitted for further cardiac evaluation and stress test. 4:34 PM Lab evaluation of this patient is unremarkable except for an elevated troponin of 0.131. Reevaluation, patient's chest pain is unchanged. Patient was started on a heparin drip. Case discussed with Dr. Stephen urosepsis admission and agrees with current care plan. Patient informed of her lab results and Plan. She is agreeable. Disposition Clinical Impression: Acute non-ST segment elevation myocardial infarction (STEMI) following previous myocardial infarction Disposition: ADMITTED IP TO THIS HOSP Condition: Good Referrals: Jamison Mercado DO [Primary Care Provider] - 1-2 days Decision to Admit Reason: Admit from EC - Out of Hospital Transfer - Req. Specs Out of Hospital Transfer - Requested Specifics: Telemetry Unit
[2019-02-12 15:26] LABS: Basophils % (A) 0 %; Eosinophils # (A) 0.1 k/uL (0-0.7); Eosinophils % (A) 1 %; HCT 42.8 % (34.0-46.0); HGB 14.1 gm/dL (11.4-16.0); Lymphocytes # (A) 1.6 k/uL (1.0-4.8); Lymphocytes % (A) 22 %; MCH 30.1 pg (25.0-35.0); MCHC 32.9 g/dL (31.0-37.0); MCV 91.6 fL (80.0-100.0); Mean Platelet Volume 6.8; Monocytes # (A) 0.4 k/uL (0-1.0); Monocytes % (A) 6 %; Neutrophils # (A) 5.1 k/uL (1.3-7.7); Neutrophils % (A) 70 %; Platelet Count 264 k/uL (150-450); RBC 4.68 m/uL (3.80-5.40); WBC 7.2 k/uL (3.8-10.6)
[2019-02-12 15:34] LABS: Calcium 9.4 mg/dL (8.4-10.2); Potassium 4.1 mmol/L (3.5-5.1)
--- NOTE | 2019-02-12 15:34 | XR ---
EXAMINATION TYPE: XR chest 2V DATE OF EXAM: 02/12/2019 COMPARISON: Chest x-ray September 03, 2016. HISTORY: Chest pain. TECHNIQUE: Frontal and lateral views of the chest are obtained. FINDINGS: Overlying EKG leads are seen. There is no focal air space opacity, pleural effusion, or pneumothorax seen. The cardiac silhouette size is within normal limits. The osseous structures are intact. IMPRESSION: No acute cardiopulmonary process. No significant change from prior.
[2019-02-12] MEDS ORDERED: HEPARIN SODIUM,PORCINE 5,000 UNIT/ML 1 ML VIAL IV ONE (16:02)
[2019-02-12] MEDS ORDERED: HEPARIN SODIUM,PORCINE 5,000 UNIT/ML 1 ML VIAL IV PRN (16:02)
[2019-02-12] MEDS ORDERED: ONDANSETRON 4 MG/2 ML VIAL IVP PRN (16:36)
[2019-02-12] MEDS ORDERED: NALOXONE 0.4 MG/ML 1 ML VIAL IV PRN (16:36)
[2019-02-12] MEDS: HEPARIN SOD,PORK IN 0.45% NACL 25,000 UNIT in 0.45% NACL 1 250ML.BAG IV SCH (16:47)
[2019-02-12 16:57] LABS: INR 0.9 (<1.2); Partial Thromboplastin Time 25.8 sec (22.0-30.0); Prothrombin Time 10.1 sec (9.0-12.0)
[2019-02-12] MEDS ORDERED: ACETAMINOPHEN TAB 325 MG TAB PO PRN (18:01)
[2019-02-12] MEDS: ATORVASTATIN 80 MG TAB PO SCH (21:19)
[2019-02-12] MEDS: FAMOTIDINE 20 MG TAB PO SCH (21:19)
[2019-02-12] MEDS: METOPROLOL TARTRATE 25 MG TAB PO SCH (21:20)
--- NOTE | 2019-02-13 01:31 | P.HPIM ---
History of Present Illness H&P Date: 02/12/19 Chief Complaint: Chest pain Patient is a 53-year-old female with a known history of hypertension, hyperlipidemia and history of cardiac cath patient about 10 years ago came to ER with complaints of chest pain and left shoulder pain. Patient has been having worsening pain for the past 3 days. On and off with pressure-like sensation in the chest. Pain is mainly in the left upper chest and to the shoulder blade. Discussed with nausea and an episode of vomiting. Patient also diaphoretic. Sometimes pain gets with movement of the shoulder. No relieving factors. Patie nt says that she had cardiac catheterization about 10 years ago but no history of stent placement. Denied any headache or dizziness or lightheadedness. No palpitations. No orthopnea no PND. No leg swelling. Denied any recent illnesses. No injury. No recent upper respiratory infection. No history of GERD. Patient does smoke some days. Chest x-ray showed no acute cardio pulmonary process EKG showed sinus bradycardia and low voltageand Low voltage. Troponin 0.131 and 0.267 Review of Systems Constitutional: Patient denies any fever or chills . No generalized weakness or weight loss. Abdomen: Patient denied nausea vomiting and diarrhea and abdominal pain. Cardiovascular: He does have chest pain left upper. No leg swelling no palpitations. Respiratory: patient denied any cough is from production. No shortness of breath Neurologic: Patient denied any numbness or tingling headache. Musculoskeletal: Patient denies any complaints of joint swelling or deformity. Skin: Negative Psychiatric: Negative Endocrine: No heat or cold intolerance. No recent weight gain. Genitourinary: No dysuria or hematuria. 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 History of Any Multi-Drug Resistant Organisms: None Reported Past Surgical History: Section, Heart Catheterization, Orthopedic Surgery Additional Past Surgical History / Comment(s): Colonoscopy 01/09/2016. Past Anesthesia/Blood Transfusion Reactions: No Reported Reaction Additional Past Anesthesia/Blood Transfusion Reaction / Comment(s): Never had a blood transfusion Past Psychological History: No Psychological Hx Reported Smoking Status: Current some day smoker Past Alcohol Use History: Occasional Past Drug Use History: None Reported - Past Family History Mother Family Medical History: Cancer Sister(s) Family Medical History: Cancer Additional Family Medical History / Comment(s): Another sister had lung cancer. Medications and Allergies Home Medications Medication Instructions Recorded Confirmed Type Aspirin [Adult Low Dose Aspirin EC] 81 mg PO DAILY 10/08/16 02/12/19 History Atorvastatin [Lipitor] 80 mg PO HS 10/08/16 02/12/19 History Isosorbide Mononitrate ER [Imdur] 30 mg PO DAILY 10/08/16 02/12/19 History Metoprolol Tartrate 25 mg PO BID 10/08/16 02/12/19 History Ranitidine HCl [Zantac] 150 mg PO BID 10/12/16 02/12/19 History Cholecalciferol (Vitamin D3) 2,000 unit PO DAILY 02/12/19 02/12/19 History [Vitamin D3] Niacin [Niaspan] 500 mg PO DAILY 02/12/19 02/12/19 History Sertraline [Zoloft] 100 mg PO DAILY 02/12/19 02/12/19 History Allergies Allergy/AdvReac Type Severity Reaction Status Date / Time cephalexin [From Keflex] Allergy Rash/Hives Verified 05/03/18 08:59 Penicillins Allergy Rash/Hives Verified 05/03/18 08:59 Physical Exam Vitals: Vital Signs Temp Pulse Pulse Resp BP BP Pulse Ox 02/12/19 20:00 97.7 F 65 18 138/79 95 02/12/19 18:02 58 L 16 02/12/19 17:05 97.9 F 58 L 16 143/81 95 02/12/19 17:00 56 L 20 146/86 98 02/12/19 16:30 59 L 20 161/86 97 02/12/19 16:00 57 L 18 157/88 96 02/12/19 15:30 55 L 20 163/73 98 02/12/19 15:10 57 L 20 163/73 02/12/19 14:39 98.2 F 58 L 18 178/91 97 Intake and Output 02/12/19 02/12/19 02/13/19 14:59 22:59 06:59 Intake Total 125 Balance 125 Intake: Oral 125 Other: Voiding Method Toilet # Voids 1 Weight 95.254 kg PHYSICAL EXAMINATION: Patient is lying in the bed comfortably, no acute distress, awake alert and oriented.. HEENT: Normocephalic. Neck is supple. Pupils reactive. Nostrils clear. Oral cavity is moist. Ears reveal no drainage. Neck reveals no JVD, carotid bruits, or thyromegaly. CHEST EXAMINATION: Trachea is central. Symmetrical expansion. Lung devine clear to auscultation and percussion. CARDIAC: Normal S1, S2 with no gallops. No murmurs ABDOMEN: Soft. Bowel sounds normal. No organomegaly. No abdominal bruits. Extremities: reveal no edema. No clubbing or cyanosis Neurologically awake, alert, oriented x3 with well-coordinated movements. No focal deficits noted Skin: No rash or skin lesions. Psychiatric: Coperative. Nonsuicidal Musculoskeletal: No joint swelling or deformity. Normal range of motion. Results CBC & Chem 7: 02/12/19 15:00 02/12/19 15:00 Labs: Abnormal Lab Results - Last 24 Hours (Table) 02/12/19 02/12/19 02/12/19 Range/Units 15:00 15:00 17:50 APTT (22.0-30.0) sec BUN 19 H (7-17) mg/dL Troponin I 0.131 H* 0.267 H* (0.000-0.034) ng/mL 02/12/19 Range/Units 22:37 APTT 47.8 H (22.0-30.0) sec BUN (7-17) mg/dL Troponin I (0.000-0.034) ng/mL Thrombosis Risk Factor Assmnt - Choose All That Apply Each Factor Represents 1 point: Age 41-60 years Thrombosis Risk Factor Assessment Total Risk Factor Score: 1 Thrombosis Risk Factor Assessment Level: Low Risk Assessment and Plan Assessment: Acute non-ST elevated SD with elevated troponin level. Chest pain/angina. Previous history of cardiac catheterization 10 years back. No PCI Hypertension Hyperlipidemia Occasional smoking Plan: Patient will be continued on telemetry monitoring. Follow-up serial troponins. Continue with heparin drip. Started on aspirin and statins. Cardiology was consulted. We will also get x-ray of the left shoulder. Follow-up closely. further recommendations based on the clinical course. Time with Patient: Greater than 30
[2019-02-13] MEDS: MORPHINE SULFATE 4 MG/ML SYRINGE IV PRN (02:54)
[2019-02-13 03:52] LABS: Basophils # (A) 0.1 k/uL (0-0.2); Basophils % (A) 1 %; Eosinophils # (A) 0.2 k/uL (0-0.7); Eosinophils % (A) 3 %; HCT 43.2 % (34.0-46.0); HGB 14.5 gm/dL (11.4-16.0); Lymphocytes % (A) 41 %; MCH 31.4 pg (25.0-35.0); MCHC 33.6 g/dL (31.0-37.0); MCV 93.5 fL (80.0-100.0); Mean Platelet Volume 7.6; Monocytes # (A) 0.4 k/uL (0-1.0); Monocytes % (A) 5 %; Neutrophils # (A) 3.6 k/uL (1.3-7.7); Neutrophils % (A) 49 %; Platelet Count 226 k/uL (150-450); RBC 4.62 m/uL (3.80-5.40); RDW 14.1 % (11.5-15.5); WBC 7.4 k/uL (3.8-10.6)
[2019-02-13] MEDS ORDERED: ISOSORBIDE MONONITRATE ER 30 MG TAB.ER.24H PO SCH (09:00)
--- NOTE | 2019-02-13 09:06 | P.CRDCN ---
History of Present Illness Consult date: 02/13/19 Requesting physician: Adarsh Stephen Consult reason: non-Q-wave OR Chief complaint: Chest and scapula discomfort History of present illness: This is a pleasant 53-year-old female with history of hypertension, hyperlipidemia, nicotine dependence, she smokes one pack of cigarettes per day, she also has history of premature coronary artery disease in 2 of her mother's brothers who had myocardial infarctions in their 40s. Patient presents to the hospital with symptoms of left-sided chest pressure and heaviness with radiation into the left shoulder and down the left arm, she also has significant discomfort in the scapula area. She has associated nausea with this and significant diaphoresis. Symptoms have been occurring off and on since Wednesday, becoming much more constant in nature. For this reason she came to the emergency room for further evaluation and treatment. Patient did undergo cardiac catheterization 10 years ago, was told at that time to have some blockage but not enough requiring stent placement. Her last office visit was with Dr. Farr, she is not sure who she has been reassigned to since then. Chest x-ray on presentation here did not show any acute cardiopulmonary process. Initial chest x-ray showed a normal sinus rhythm with non-specific ST-T wave changes noted in the anterior leads. Subsequent EKG performed this morning shows normal sinus rhythm with significant changes in the anterior lateral leads. Blood pressure on arrival here 178/90 with a heart rate in the 50s, 97% on room air. Blood pressure this morning 190/90 with a heart rate in the 70s, 96% on room air. White blood cell count is normal, hemoglobin 14.5, platelet count 226. Sodium 141, potassium 4.1, BUN 19 and creatinine 0.8. Troponin 0.13, 0.26, 1.3. BNP level 281. Patient was initiated on IV heparin in the emergency room, she is also on aspirin, Lipitor, Imdur, metoprolol 25 mg one tablet by mouth twice a day. At the time of my examination this morning, axel werner does still complain of some mid scapular discomfort. 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 History of Any Multi-Drug Resistant Organisms: None Reported Past Surgical History: Section, Heart Catheterization, Orthopedic Surgery Additional Past Surgical History / Comment(s): Colonoscopy 01/09/2016. Past Anesthesia/Blood Transfusion Reactions: No Reported Reaction Additional Past Anesthesia/Blood Transfusion Reaction / Comment(s): Never had a blood transfusion Past Psychological History: No Psychological Hx Reported Smoking Status: Current some day smoker Past Alcohol Use History: Occasional Past Drug Use History: None Reported - Past Family History Mother Family Medical History: Cancer Sister(s) Family Medical History: Cancer Additional Family Medical History / Comment(s): Another sister had lung cancer. Medications and Allergies Home Medications Medication Instructions Recorded Confirmed Type Aspirin [Adult Low Dose Aspirin EC] 81 mg PO DAILY 10/08/16 02/12/19 History Atorvastatin [Lipitor] 80 mg PO HS 10/08/16 02/12/19 History Isosorbide Mononitrate ER [Imdur] 30 mg PO DAILY 10/08/16 02/12/19 History Metoprolol Tartrate 25 mg PO BID 10/08/16 02/12/19 History Ranitidine HCl [Zantac] 150 mg PO BID 10/12/16 02/12/19 History Cholecalciferol (Vitamin D3) 2,000 unit PO DAILY 02/12/19 02/12/19 History [Vitamin D3] Niacin [Niaspan] 500 mg PO DAILY 02/12/19 02/12/19 History Sertraline [Zoloft] 100 mg PO DAILY 02/12/19 02/12/19 History Allergies Allergy/AdvReac Type Severity Reaction Status Date / Time cephalexin [From Keflex] Allergy Rash/Hives Verified 05/03/18 08:59 Penicillins Allergy Rash/Hives Verified 05/03/18 08:59 Physical Exam Vitals: Vital Signs Temp Pulse Pulse Resp BP BP Pulse Ox 02/13/19 04:00 98.1 F 70 18 191/91 96 02/13/19 00:00 98.1 F 65 18 121/74 96 02/12/19 20:00 97.7 F 65 18 138/79 95 02/12/19 18:02 58 L 16 02/12/19 17:05 97.9 F 58 L 16 143/81 95 02/12/19 17:00 56 L 20 146/86 98 02/12/19 16:30 59 L 20 161/86 97 02/12/19 16:00 57 L 18 157/88 96 02/12/19 15:30 55 L 20 163/73 98 02/12/19 15:10 57 L 20 163/73 02/12/19 14:39 98.2 F 58 L 18 178/91 97 Intake and Output 02/12/19 02/13/19 02/13/19 22:59 06:59 14:59 Intake Total 125 Balance 125 Intake: Oral 125 Other: Voiding Method Toilet Toilet # Voids 1 1 Weight 93.5 kg PHYSICAL EXAMINATION: GENERAL: 83-year-old female in no acute distress at the time of my examination HEENT: Head is atraumatic, normocephalic. Pupils equal, round. Sclera anicteric. Conjunctiva are clear. Mucous membranes of the mouth are moist. Neck is supple. There is no elevated jugular venous pressure. No carotid bruit is heard. HEART EXAMINATION: Heart S1, S2 normal. No murmur or gallop heard. CHEST EXAMINATION: Lungs are clear to auscultation and precussion. No chest wall tenderness is noted on palpation or with deep breathing. Mid scapular discomfort ABDOMEN: Soft, nontender. Bowel sounds are heard. No organomegaly noted. EXTREMITIES: 2+ peripheral pulses with no evidence of peripheral edema and no calf tenderness noted. NEUROLOGIC patient is awake, alert and oriented 3 . . Results 02/13/19 03:33 02/12/19 15:00 Cardiac Enzymes 02/12/19 02/12/19 02/13/19 Range/Units 15:00 17:50 03:33 Troponin I 0.131 H* 0.267 H* 1.330 H* (0.000-0.034) ng/mL Coagulation 02/12/19 02/12/19 02/13/19 Range/Units 15:00 22:37 06:32 PT 10.1 (9.0-12.0) sec APTT 25.8 47.8 H 49.4 H (22.0-30.0) sec CBC 02/12/19 02/13/19 Range/Units 15:00 03:33 WBC 7.2 7.4 (3.8-10.6) k/uL RBC 4.68 4.62 (3.80-5.40) m/uL Hgb 14.1 14.5 (11.4-16.0) gm/dL Hct 42.8 43.2 (34.0-46.0) % Plt Count 264 226 (150-450) k/uL Comprehensive Metabolic Panel 02/12/19 Range/Units 15:00 Sodium 141 (137-145) mmol/L Potassium 4.1 (3.5-5.1) mmol/L Chloride 107 (98-107) mmol/L Carbon Dioxide 27 (22-30) mmol/L BUN 19 H (7-17) mg/dL Creatinine 0.89 (0.52-1.04) mg/dL Glucose 96 (74-99) mg/dL Calcium 9.4 (8.4-10.2) mg/dL Current Medications Generic Name Dose Route Start Last Admin Trade Name Freq PRN Reason Stop Dose Admin Acetaminophen 650 mg 02/12/19 18:01 02/12/19 18:35 Tylenol Tab PO 650 mg Q6HR PRN Administration Fever and/ or MILD Pain Aspirin 81 mg 02/13/19 09:00 Aspirin PO DAILY [facility] Atorvastatin Calcium 80 mg 02/12/19 21:00 02/12/19 21:19 Lipitor PO 80 mg HS [facility] Administration Cholecalciferol 2,000 unit 02/13/19 09:00 Vitamin D3 (25 Mcg = 1000 Iu) PO DAILY [facility] Famotidine 20 mg 02/12/19 21:00 02/12/19 21:19 Pepcid PO 20 mg BID ORAL Administration Heparin Sodium (Porcine) 0 unit 02/12/19 16:02 Heparin IV PER PROTOCOL PRN Low PTT Protocol Heparin Sodium/Sodium Chloride 250 mls @ 10 mls/hr 02/12/19 16:15 02/12/19 16:47 25,000 unit/ Sodium Chloride IV 10.498 units/kg/hr .Q24H ORAL 10 mls/hr Administration Protocol 10.498 UNITS/KG/HR Isosorbide Mononitrate 30 mg 02/13/19 09:00 Imdur PO DAILY [facility] Metoprolol Tartrate 25 mg 02/12/19 21:00 02/12/19 21:20 Lopressor PO 25 mg BID ORAL Administration Morphine Sulfate 4 mg 02/12/19 16:36 02/13/19 02:54 Morphine Sulfate (Inj) IV 4 mg Q4HR PRN Administration Severe Pain Naloxone HCl 0.2 mg 02/12/19 16:36 Narcan IV Q2M PRN Opioid Reversal Niacin 500 mg 02/13/19 09:00 Niacin Tr PO DAILY ORAL Nitroglycerin 0.4 mg 02/12/19 14:55 02/12/19 15:02 Nitrostat SUBLINGUAL 0.4 mg Q5M PRN Administration Chest Pain Ondansetron HCl 4 mg 02/12/19 16:36 Zofran IVP Q8HR PRN Nausea And Vomiting Sertraline HCl 100 mg 02/13/19 09:00 Zoloft PO DAILY ORAL Intake and Output 02/12/19 02/13/19 02/13/19 22:59 06:59 14:59 Intake Total 125 Balance 125 Intake: Oral 125 Other: Voiding Method Toilet Toilet # Voids 1 1 Weight 93.5 kg 02/13/19 03:33 02/12/19 15:00 EKG Interpretations (text) EKG shows normal sinus rhythm with ST-T wave changes noted in the anterior lateral leads. Assessment and Plan Plan: Assessment and plan #1 symptoms of left-sided chest pressure and heaviness with radiation down the left arm and into the scapular area with associated nausea and diaphoresis suggesting acute coronary syndrome. EKG shows normal sinus rhythm with ST-T wave changes noted in the anterior lateral leads. Troponins 0.1, 0.2, 1.3. Patient did have a cardiac catheterization performed 10 years ago, was told at that time to have mild blockage not requiring stenting. #2 hypertension, accelerated #3 hyperlipidemia #4 nicotine dependence #5 family history of premature coronary artery disease Plan We will obtain a stat echocardiogram with Doppler study. Continue IV heparin, aspirin, Lipitor, metoprolol, we will add losartan to her medication regime as well. She's been recommended to undergo cardiac catheterization, the risks and benefits were explained to the patient in detail and she is willing to proceed. Further recommendations will be based on those findings and the patient's clinical course. DNP note has been reviewed, I agree with a documented findings and plan of care. Patient was seen and examined.
[2019-02-13] MEDS: METOPROLOL TARTRATE 25 MG TAB PO SCH ×2 (09:08→19:35)
[2019-02-13] MEDS: ASPIRIN 81 MG PO SCH (09:09)
[2019-02-13] MEDS: LOSARTAN 25 MG TAB PO SCH (09:12)
[2019-02-13] MEDS ORDERED: ALPRAZolam 0.25 MG TAB PO PRN (09:49)
[2019-02-13] MEDS ORDERED: ALPRAZolam 0.5 MG TAB PO PRN (09:49)
[2019-02-13] MEDS ORDERED: ATORVASTATIN 80 MG TAB PO STA (09:49)
[2019-02-13] MEDS ORDERED: SODIUM CHLORIDE 0.9% 1,000 ML in EMPTY BAG 1 BAG IV ONE (09:49)
[2019-02-13] MEDS ORDERED: ASPIRIN 325 MG TAB PO STA (09:49)
[2019-02-13] MEDS ORDERED: NITROGLYCERIN SL TABS 0.4 MG TAB SUBLINGUAL PRN ×2 (09:49→11:50)
[2019-02-13] MEDS ORDERED: fentaNYL (PF) 50 MCG/ML 2 ML AMP IV ONE (10:36)
[2019-02-13] MEDS ORDERED: MIDAZOLAM (PF) 2 MG/2 ML VIAL IVP ONE (10:36)
[2019-02-13] MEDS ORDERED: LIDOCAINE 1% INJ 10MG/ML (20 ML MDV) SQ ONE (10:38)
[2019-02-13] MEDS ORDERED: VERAPAMIL SYRINGE (5 MG/10 ML) INTRAARTER ONE (10:40)
[2019-02-13] MEDS ORDERED: HEPARIN SODIUM 1,000 UN/ML (10ML VL) IV ONE (10:40)
--- NOTE | 2019-02-13 11:11 | P.CARDCATH ---
Date of Procedure: 02/13/19 Preoperative Diagnosis: Non-STEMI Postoperative Diagnosis: Subtotal occlusion of the mid LAD and a critical lesion in the mid RCA Procedure(s) Performed: Left heart catheterization without left ventriculography Description of Procedure: HISTORY: This is a 53-year-old female with history of hypertension, hypercholesterolemia and smoking who was admitted to the hospital with prolonged chest and shoulder pain with EKG evidence of chest T-wave inversion in anterior leads and positive troponins. Findings were consistent with non-ST elevation NM. Patient is advised to have a cardiac catheterization CONSENT:I have discussed the risks, benefits and alternative therapies for the above-mentioned procedure and for both sedation/analgesia as well as necessary blood product administration, if indicated, as they pertain to this patient. The patient has indicated understanding and acceptance of the risks and procedures discussed. PROCEDURE: Patient was brought to the lab in a fasting state. Patient was given some IV sedation. The right wrist is infiltrated with lidocaine and right radial artery was entered using Seldinger technique. A 6-Colombian catheter was left in place and selective coronary arteriography was performed. Patient tolerated the procedure well. . No immediate complications were noted and patient is waiting to have stent placement by Dr. Mancini Conscious Sedation: Versed 1 mg Fentanyl 50 g Duration 25minutes HEMODYNAMICS: The aortic pressure is 135/79. The left ventricular end-diastolic pressure is about 15-20. There was no gradient across the aortic valve SELECTIVE CORONARY ARTERIOGRAPHY: LEFT MAIN: This is a normal length and patent THE LEFT ANTERIOR DESCENDING CORONARY ARTERY:. This is a good caliber vessel with diffuse disease in the proximal portion with subtotal occlusion in midportion. The distal LAD seen by faint antegrade flow. The distal LAD seemed to be free of any significant occlusive disease THE LEFT CIRCUMFLEX AND IS CORONARY ARTERY:. This is a good caliber vessel giving rise to small OM branch. Circumflex vessel coronary artery is mild diffuse disease without any critical lesions THE RIGHT CORONARY ARTERY: This is a good caliber vessel with diffuse disease involving the proximal and mid segments. There is eccentric 70% stenosis in midportion LEFT VENTRICULOGRAPHY:. Not performed FINAL IMPRESSION: Subtotal occlusion of the mid LAD. Critical lesion involving the mid RCA PLAN: Stent placement of the LAD. States stent placement of the RCA to be considered PROGNOSIS: Fair
[2019-02-13] MEDS ORDERED: IV FLUID CONTINUATION 1,000 ML IV ONE (11:17)
[2019-02-13] MEDS ORDERED: BIVALIRUDIN BOLUS 250 MG/50 ML IV ONE (11:21)
[2019-02-13] MEDS ORDERED: BIVALIRUDIN 250 MG in SODIUM CHLORIDE 0.9% 50 ML IV ONE (11:22)
[2019-02-13] MEDS ORDERED: NITROGLYCERIN 1000MCG/10ML SYRINGE INTRACORON ONE (11:35)
[2019-02-13] MEDS ORDERED: PRASUGREL 10 MG TAB ONE (11:41)
[2019-02-13] MEDS ORDERED: PRASUGREL 10 MG TAB PO ONE (11:45)
[2019-02-13] MEDS ORDERED: IOPAMIDOL-370 125ML BTL INJ ONE (11:47)
[2019-02-13] MEDS ORDERED: RX INFO: IV CONTRAST WAS GIVEN 1 EACH MISC MISCELLANE PRN (11:50)
[2019-02-13] MEDS ORDERED: ZOLPIDEM 5 MG TAB PO PRN (11:50)
[2019-02-13] MEDS ORDERED: MAG HYDROX/AL HYDROX/SIMETH 30 ML CUP PO PRN (11:50)
[2019-02-13] MEDS ORDERED: HYDROmorphone 1 MG/ML 1 ML SYRINGE IVP ONE (11:50)
[2019-02-13] MEDS ORDERED: ATROPINE SULFATE 0.1 MG/ML 10ML SYRINGE IV PRN (11:50)
[2019-02-13] MEDS ORDERED: ONDANSETRON 4 MG/2 ML VIAL IVP ONE (11:56)
[2019-02-13] MEDS ORDERED: hydrALAZINE HCL 20 MG/ML 1 ML VIAL IV ONE (11:58)
[2019-02-13] MEDS ORDERED: SODIUM CHLORIDE 0.9% 1,000 ML IV SCH (12:00)
--- NOTE | 2019-02-13 12:43 | LTR ---
February 13, 2019 Re: Cristiane Hector Dear Dr. Mercado: Ms. Cristiane Young underwent successful stenting of the mid left anterior descending artery with good angiographic results and without any complication. I want to thank you for allowing me to participate in her care and please do not hesitate to call if you have any question or concern. Sincerely, Johnny Bustos MD MMMICHAELAL / ANGELAN: [id number] /
--- NOTE | 2019-02-13 12:43 | PTCA ---
PERCUTANEOUSTRANS CORORONARY ANGIOGRAPHY DATE OF SERVICE: February 13, 2019 PERFORMING PHYSICIAN: Johnny Bustos MD, glass grinder. PROCEDURE PERFORMED: Successful stenting of the mid LAD using 2.5 x 28 mm Xience RAKESH which was post dilated using 2.75 mm NC balloon with excellent angiographic results and reduction of stenosis 100% to 0%. INDICATION: This is a 53-year-old lady who presented to the hospital with chest discomfort and ruled in for acute non-ST elevation myocardial infarction. She underwent heart catheterization by Dr. Delgado and was found to have occluded LAD in the midportion. Because of that, a PCI of the LAD was advised. She also was found to have severe disease involving the mid RCA. APPROACH: Right radial artery. COMPLICATION: None. LEVEL OF SEDATION: Moderate with a sedation length of 29 minutes. PROCEDURE DESCRIPTION: Please refer to the diagnostic heart catheterization that was performed by Dr. Delgado. Anticoagulation was initiated using Angiomax. Subsequently I did engage the left main using JL3.5 guide. I attempted crossing the lesion using a run-through wire and I was unable. but I was able using a Whisper wire with the backup support of 2 x 12 mm and balloon. After that I did balloon angioplasty using the 2.0 x 12 mm balloon before I deployed 2.5 x 28 mm Xience RAKESH where the stent was positioned under fluoroscopy guidance and deployed under its nominal pressure. I post dilated the stent using 2.75 mm NC balloon. The following angiogram showed excellent angiographic results and the procedure was completed without any complication. POSTPROCEDURE MANAGEMENT: 1. Dual antiplatelet therapy. 2. PCI of the RCA to be done during this admission or as an outpatient. 3. Follow up with the patient. MMODL / IJN: [id number] /
[2019-02-13] MEDS: FAMOTIDINE 20 MG TAB PO SCH ×2 (14:48→19:35)
[2019-02-13 14:52] VITALS: BMI 35.4
[2019-02-13] MEDS: CHOLECALCIFEROL 1,000 UNIT TAB PO SCH (15:38)
[2019-02-13] MEDS: SERTRALINE 100 MG TAB PO SCH (15:38)
[2019-02-13] MEDS: NIACIN TR 500 MG CAPLET PO SCH (15:39)
[2019-02-13] MEDS: HEPARIN SOD,PORK IN 0.45% NACL 25,000 UNIT in 0.45% NACL 1 250ML.BAG IV SCH (16:24)
[2019-02-13] MEDS: ATORVASTATIN 80 MG TAB PO SCH (19:35)
--- NOTE | 2019-02-14 00:45 | P.PN ---
Subjective Progress Note Date: 02/13/19 Principal diagnosis: Acute non-ST elevated UT Patient is a 53-year-old female with a known history of hypertension, hyperlipidemia and history of cardiac cath patient about 10 years ago came to ER with complaints of chest pain and left shoulder pain. Patient has been having worsening pain for the past 3 days. On and off with pressure-like sensation in the chest. Pain is mainly in the left upper chest and to the shoulder blade. Discussed with nausea and an episode of vomiting. Patient also diaphoretic. Sometimes pain gets with movement of the shoulder. No relieving factors. Patient says that she had cardiac catheterization about 10 years ago but no history of stent placement. Denied any headache or dizziness or lightheadedness. No palpitations. No orthopnea no PND. No leg swelling. Denied any recent illnesses. No injury. No recent upper respiratory infection. No history of GERD. Patient does smoke some days. Chest x-ray showed no acute cardio pulmonary process EKG showed sinus bradycardia and low voltageand Low voltage. Troponin 0.131 and 0.267 02/13/2019 Patient underwent cardiac catheterization and stent placement to LAD. PCI to RCA to be done during this admission are as an outpatient as per cardiology. Patient denied any complaints of chest pain or shortness of breath today. No events of left shoulder pain. No nausea vomiting or diarrhea. No other acute overnight issues. Patient is being continued on telemetry monitoring. Dual antiplatelet therapy was added. Current medications reviewed. Objective - Vital Signs Vital signs: Vital Signs Temp 98.2 F 02/13/19 19:37 Pulse 68 02/13/19 19:38 Resp 18 02/13/19 19:38 BP 133/68 02/13/19 19:37 Pulse Ox 95 02/13/19 19:37 Intake & Output 02/13/19 02/13/19 02/14/19 06:59 18:59 06:59 Intake Total 1020 Balance 1020 Weight 93.5 kg 93.5 kg Intake: IV 100 Intake, IV Titration 600 Amount Bivalirudin 250 mg In 50 Sodium Chloride 0.9% 50 ml @ 0 mls/hr IV .[facility] Rx#:[id number] Heparin Sod,Pork in 0.45% 100 NaCl 25,000 unit In 0.45 % NaCl 1 250ml.bag @ 10. 498 UNITS/KG/HR 10 mls/hr IV .[facility] Rx#: [id number] Sodium Chloride 0.9% 1, 450 000 ml @ 75 mls/hr IV . [id number] [facility] Rx#:[id number] Oral 320 Other: Voiding Method Toilet Toilet Toilet # Voids 1 - Exam PHYSICAL EXAMINATION: Patient is lying in the bed comfortably, no acute distress, awake alert and oriented.. HEENT: Normocephalic. Neck is supple. Pupils reactive. Nostrils clear. Oral cavity is moist. Ears reveal no drainage. Neck reveals no JVD, carotid bruits, or thyromegaly. CHEST EXAMINATION: Trachea is central. Symmetrical expansion. Lung devine clear to auscultation and percussion. CARDIAC: Normal S1, S2 with no gallops. No murmurs ABDOMEN: Soft. Bowel sounds normal. No organomegaly. No abdominal bruits. Extremities: reveal no edema. No clubbing or cyanosis Neurologically awake, alert, oriented x3 with well-coordinated movements. No focal deficits noted Skin: No rash or skin lesions. Psychiatric: Coperative. Nonsuicidal Musculoskeletal: No joint swelling or deformity. Normal range of motion. - Labs CBC & Chem 7: 02/13/19 03:33 02/12/19 15:00 Labs: Abnormal Lab Results - Last 24 Hours (Table) 02/12/19 02/13/19 02/13/19 Range/Units 22:37 03:33 06:32 APTT 47.8 H 49.4 H (22.0-30.0) sec Troponin I 1.330 H* (0.000-0.034) ng/mL Assessment and Plan Assessment: Acute non-ST elevated UT with elevated troponin level. Status post cardiac catheterization and stent placement. Chest pain/angina. Previous history of cardiac catheterization 10 years back. No PCI Hypertension Hyperlipidemia Occasional smoking Plan: Patient will be continued on telemetry monitoring. Started on aspirin, prasugrel, beta kasia and statins. Cardiology is following. further recommendations based on the clinical course. Time with Patient: Greater than 30
[2019-02-14 07:00] LABS: Basophils % (A) 0 %; Eosinophils # (A) 0.2 k/uL (0-0.7); Eosinophils % (A) 2 %; HCT 42.2 % (34.0-46.0); HGB 13.7 gm/dL (11.4-16.0); Lymphocytes % (A) 27 %; MCHC 32.5 g/dL (31.0-37.0); MCV 95.5 fL (80.0-100.0); Mean Platelet Volume 7.2; Monocytes # (A) 0.4 k/uL (0-1.0); Monocytes % (A) 5 %; Neutrophils # (A) 4.5 k/uL (1.3-7.7); Neutrophils % (A) 64 %; Platelet Count 251 k/uL (150-450); RBC 4.42 m/uL (3.80-5.40); RDW 13.8 % (11.5-15.5); WBC 7.1 k/uL (3.8-10.6)
[2019-02-14 07:26] LABS: African American GFR (CKD) >90 (>60 ml/min/1.73 sqM)
[2019-02-14] MEDS: ASPIRIN 81 MG PO SCH (08:55)
[2019-02-14] MEDS: CHOLECALCIFEROL 1,000 UNIT TAB PO SCH (08:55)
[2019-02-14] MEDS: LOSARTAN 25 MG TAB PO SCH (08:56)
[2019-02-14] MEDS: NIACIN TR 500 MG CAPLET PO SCH (08:56)
[2019-02-14] MEDS: SERTRALINE 100 MG TAB PO SCH (08:56)
[2019-02-14] MEDS: FAMOTIDINE 20 MG TAB PO SCH ×2 (08:56→19:32)
[2019-02-14] MEDS: METOPROLOL TARTRATE 25 MG TAB PO SCH ×2 (08:56→19:32)
[2019-02-14] MEDS ORDERED: ALPRAZolam 0.5 MG TAB PO PRN (11:07)
[2019-02-14] MEDS ORDERED: SODIUM CHLORIDE 0.9% 1,000 ML in EMPTY BAG 1 BAG IV ONE (11:07)
[2019-02-14] MEDS ORDERED: ALPRAZolam 0.25 MG TAB PO PRN (11:07)
[2019-02-14] MEDS ORDERED: ATORVASTATIN 80 MG TAB PO STA (11:07)
[2019-02-14] MEDS ORDERED: ASPIRIN 325 MG TAB PO STA (11:07)
--- NOTE | 2019-02-14 13:18 | ECHOF ---
Referral Reason:Chest pain MEASUREMENTS -------- HEIGHT: 162.6 cm WEIGHT: 93.4 kg BP: 107/63 IVSd: 1.5 cm (0.6 - 1.1) LVIDd: 5.1 cm (3.9 - 5.3) LVPWd: 1.2 cm (0.6 - 1.1) IVSs: 1.9 cm LVIDs: 3.3 cm LVPWs: 1.7 cm Ao Diam: 3.1 cm (2.0 - 3.7) AV Cusp: 2.0 cm (1.5 - 2.6) LA Diam: 3.6 cm (2.7 - 3.8) MV EXCURSION: 14.924 mm (> 18.000) MV EF SLOPE: 72 mm/s (70 - 150) EPSS: 0.6 cm MV E Matthew: 1.08 m/s MV DecT: 453 ms MV A Matthew: 0.98 m/s MV E/A Ratio: 1.12 FINDINGS -------- Sinus rhythm. Resting bradycardia (HR<60bpm). This was a technically good study. The left ventricular size is normal. There is mild concentric left ventricular hypertrophy. Overa ll left ventricular systolic function is mildly impaired with, an EF between 45 - 50 %. Apical ante rior LV wall motion is hypokinetic. Apical lateral LV wall motion is hypokinetic. Apical septum LV wall motion is hypokinetic. The right ventricle is normal in size. The left atrium is normal in size. The right atrial size is normal. The aortic valve is trileaflet, and appears structurally normal. No aortic stenosis or regurgitation. Normal appearing mitral valve. Mild mitral regurgitation is present. The tricuspid valve appears structurally normal. Mild tricuspid regurgitation present. There is no pulmonic regurgitation present. There is no pericardial effusion. CONCLUSIONS -------- 1. Sinus rhythm. 2. Resting bradycardia (HR<60bpm). 3. This was a technically good study. 4. The left ventricular size is normal. 5. There is mild concentric left ventricular hypertrophy. 6. Overall left ventricular systolic function is mildly impaired with, an EF between 45 - 50 %. 7. Apical anterior LV wall motion is hypokinetic. 8. Apical lateral LV wall motion is hypokinetic. 9. Apical septum LV wall motion is hypokinetic. 10. The left atrium is normal in size. 11. The aortic valve is trileaflet, and appears structurally normal. No aortic stenosis or regurgitat ion. 12. Mild mitral regurgitation is present. 13. The tricuspid valve appears structurally normal. 14. Mild tricuspid regurgitation present. 15. There is no pulmonic regurgitation present. 16. There is no pericardial effusion. LEAF CONDITIONER HELPER: Landon Durand RDCS RVT
[2019-02-14] MEDS: MORPHINE SULFATE 4 MG/ML SYRINGE IV PRN (13:53)
[2019-02-14] MEDS: PRASUGREL 10 MG TAB PO SCH (14:01)
[2019-02-14] MEDS: NITROGLYCERIN SL TABS 0.4 MG TAB SUBLINGUAL PRN ×3 (14:04→14:25)
--- NOTE | 2019-02-14 14:45 | P.PN ---
Subjective Progress Note Date: 02/14/19 This is a pleasant 53-year-old female with history of hypertension, hyperlipidemia, nicotine dependence, she smokes one pack of cigarettes per day, she also has history of premature coronary artery disease in 2 of her mother's brothers who had myocardial infarctions in their 40s. Patient presents to the hospital with symptoms of left-sided chest pressure and heaviness with radiation into the left shoulder and down the left arm, she also has significant discomfort in the scapula area. She has associated nausea with this and significant diaphoresis. Symptoms have been occurring off and on since Wednesday, becoming much more constant in nature. For this reason she came to the emergency room for further evaluation and treatment. Patient did undergo cardiac catheterization 10 years ago, was told at that time to have some blockage but not enough requiring stent placement. Her last office visit was with Dr. Farr, she is not sure who she has been reassigned to since then. Chest x-ray on presentation here did not show any acute cardiopulmonary process. Initial chest x-ray showed a normal sinus rhythm with non-specific ST-T wave changes noted in the anterior leads. Subsequent EKG performed this morning shows normal sinus rhythm with significant changes in the anterior lateral leads. Blood pressure on arrival here 178/90 with a heart rate in the 50s, 97% on room air. Blood pressure this morning 190/90 with a heart rate in the 70s, 96% on room air. White blood cell count is normal, hemoglobin 14.5, platelet count 226. Sodium 141, potassium 4.1, BUN 19 and creatinine 0.8. Troponin 0.13, 0.26, 1.3. BNP level 281. Patient was initiated on IV heparin in the emergency room, she is also on aspirin, Lipitor, Imdur, metoprolol 25 mg one tablet by mouth twice a day. At the time of my examination this morning, patient does still complain of some mid scapular discomfort. 02/14/2019 Patient was taken to the cardiac catheterization lab yesterday where she underwent angioplasty with stent placement of the LAD, she was also found to have severe disease involving the right coronary artery. EKG from this morning showed normal sinus rhythm with biphasic T waves noted in the anterior leads. Patient feels well denies any chest pain or difficulty in breathing states that her scapular and shoulder discomfort is completely resolved as compared with her presentation here. However at around 2:00 in the afternoon patient did develop some left shoulder and scapular discomfort, EKG showed normal sinus rhythm with similar changes in the anteriorleads, Patient was given a sublingual nitro with some relief of symptoms. She will be scheduled tomorrow to undergo angioplasty and stenting of the right coronary artery.I pressure 127/60 with a heart rate in the 60s, 96% on room air. Objective - Vital Signs Vital signs: Vital Signs Temp 98.5 F 02/14/19 12:00 Pulse 68 02/14/19 12:00 Resp 16 02/14/19 12:00 BP 138/70 02/14/19 12:00 Pulse Ox 97 02/14/19 12:00 Intake & Output 02/13/19 02/14/19 02/14/19 18:59 06:59 18:59 Intake Total 1020 1000 1102 Balance 1020 1000 1102 Weight 93.5 kg 92.8 kg Intake: IV 100 Intake, IV Titration 600 1000 Amount Bivalirudin 250 mg In 50 Sodium Chloride 0.9% 50 ml @ 0 mls/hr IV .[facility] Rx#:[id number] Heparin Sod,Pork in 0.45% 100 NaCl 25,000 unit In 0.45 % NaCl 1 250ml.bag @ 10. 498 UNITS/KG/HR 10 mls/hr IV .Q24H [facility] Rx#: [id number] Sodium Chloride 0.9% 1, 450 1000 000 ml @ 75 mls/hr IV . [id number] [facility] Rx#:[id number] Oral 320 1102 Other: Voiding Method Toilet Toilet Toilet # Voids 1 2 - Exam PHYSICAL EXAMINATION: GENERAL: 83-year-old female in no acute distress at the time of my examination HEENT: Head is atraumatic, normocephalic. Pupils equal, round. Sclera anicteric. Conjunctiva are clear. Mucous membranes of the mouth are moist. Neck is supple. There is no elevated jugular venous pressure. No carotid bruit is heard. HEART EXAMINATION: Heart S1, S2 normal. No murmur or gallop heard. CHEST EXAMINATION: Lungs are clear to auscultation and precussion. No chest wall tenderness is noted on palpation or with deep breathing. Mid scapular discomfort ABDOMEN: Soft, nontender. Bowel sounds are heard. No organomegaly noted. EXTREMITIES: 2+ peripheral pulses with no evidence of peripheral edema and no calf tenderness noted.right radial site clean and dry, good distal pulse. NEUROLOGIC patient is awake, alert and oriented 3 . - Labs CBC & Chem 7: 19 06:27 19 06:27 Assessment and Plan Plan: Assessment and plan #1 symptoms of left-sided chest pressure and heaviness with radiation down the left arm and into the scapular area with associated nausea and diaphoresis suggesting acute coronary syndrome. EKG shows normal sinus rhythm with ST-T wave changes noted in the anterior lateral leads. Troponins 0.1, 0.2, 1.3. Patient did have a cardiac catheterization performed 10 years ago, was told at that time to have mild blockage not requiring stenting. #2 hypertension, accelerated #3 hyperlipidemia #4 nicotine dependence #5 family history of premature coronary artery disease Plan patient underwent a cardiac catheterization yesterday which revealed a total LAD for which she underwent angioplasty and stenting of that vessel. She was also found to have a critical lesion in the right coronary artery. Patient did have one episode of chest discomfort this afternoon, we will start her on a nitroglycerin drip, she will be scheduled tomorrow to undergo angioplasty and stenting of the right coronary artery. DNP note has been reviewed, I agree with a documented findings and plan of care. Patient was seen and examined.
[2019-02-14] MEDS: NITROGLYCERIN-D5W PMX 50 MG in DEXTROSE/WATER 1 250ML.BAG IV SCH (15:22)
[2019-02-14 21:50] LABS: Glucose,Whole Blood 106 mg/dL (75-99)
--- NOTE | 2019-02-14 23:41 | P.PN ---
Subjective Progress Note Date: 02/14/19 Principal diagnosis: Acute non-ST elevated ME Patient is a 53-year-old female with a known history of hypertension, hyperlipidemia and history of cardiac cath patient about 10 years ago came to ER with complaints of chest pain and left shoulder pain. Patient has been having worsening pain for the past 3 days. On and off with pressure-like sensation in the chest. Pain is mainly in the left upper chest and to the shoulder blade. Discussed with nausea and an episode of vomiting. Patient also diaphoretic. Sometimes pain gets with movement of the shoulder. No relieving factors. Patient says that she had cardiac catheterization about 10 years ago but no history of stent placement. Denied any headache or dizziness or lightheadedness. No palpitations. No orthopnea no PND. No leg swelling. Denied any recent illnesses. No injury. No recent upper respiratory infection. No history of GERD. Patient does smoke some days. Chest x-ray showed no acute cardio pulmonary process EKG showed sinus bradycardia and low voltageand Low voltage. Troponin 0.131 and 0.267 02/13/2019 Patient underwent cardiac catheterization and stent placement to LAD. PCI to RCA to be done during this admission are as an outpatient as per cardiology. Patient denied any complaints of chest pain or shortness of breath today. No events of left shoulder pain. No nausea vomiting or diarrhea. No other acute overnight issues. Patient is being continued on telemetry monitoring. Dual antiplatelet therapy was added. 02/14/2019 Patient denied any complaints of shortness of breath. Had one episode of chest pain with shoulder pain which seemed to improve with nitroglycerin tablets. Patient is scheduled for cardiac Patient again tomorrow for possible PCI to RCA. Cardiology is following. No fever no chills. No nausea vomiting or abdominal pain. Current medications reviewed. Objective - Vital Signs Vital signs: Vital Signs Temp 98.0 F 02/14/19 19:34 Pulse 68 02/14/19 19:36 Resp 18 02/14/19 19:36 BP 134/65 02/14/19 19:34 Pulse Ox 94 L 02/14/19 19:34 Intake & Output 02/14/19 02/14/19 02/15/19 06:59 18:59 06:59 Intake Total 1000 1546 Balance 1000 1546 Weight 92.8 kg Intake: Intake, IV Titration 1000 Amount Sodium Chloride 0.9% 1, 1000 000 ml @ 75 mls/hr IV . [id number] [facility] Rx#:[id number] Oral 1546 Other: Voiding Method Toilet Toilet Toilet # Voids 1 2 1 - Exam PHYSICAL EXAMINATION: Patient is lying in the bed comfortably, no acute distress, awake alert and oriented.. HEENT: Normocephalic. Neck is supple. Pupils reactive. Nostrils clear. Oral cavity is moist. Ears reveal no drainage. Neck reveals no JVD, carotid bruits, or thyromegaly. CHEST EXAMINATION: Trachea is central. Symmetrical expansion. Lung devine clear to auscultation and percussion. CARDIAC: Normal S1, S2 with no gallops. No murmurs ABDOMEN: Soft. Bowel sounds normal. No organomegaly. No abdominal bruits. Extremities: reveal no edema. No clubbing or cyanosis Neurologically awake, alert, oriented x3 with well-coordinated movements. No focal deficits noted Skin: No rash or skin lesions. Psychiatric: Coperative. Nonsuicidal Musculoskeletal: No joint swelling or deformity. Normal range of motion. - Labs CBC & Chem 7: 02/14/19 06:27 02/14/19 06:27 Assessment and Plan Assessment: Acute non-ST elevated ME with elevated troponin level. Status post cardiac catheterization and stent placement to LAD. Scheduled for PCI to RCA tomorrow. Chest pain/angina. Previous history of cardiac catheterization 10 years back. No PCI Hypertension Hyperlipidemia Occasional smoking Plan: Patient will be continued on telemetry monitoring. Started on aspirin, prasugrel, beta kasia and statins. Cardiology is following. further recommendations based on the clinical course. Time with Patient: Greater than 30
[2019-02-15 07:10] LABS: Basophils % (A) 0 %; Eosinophils # (A) 0.1 k/uL (0-0.7); Eosinophils % (A) 2 %; HCT 42.3 % (34.0-46.0); HGB 13.9 gm/dL (11.4-16.0); Lymphocytes # (A) 1.8 k/uL (1.0-4.8); Lymphocytes % (A) 28 %; MCH 30.3 pg (25.0-35.0); MCHC 32.9 g/dL (31.0-37.0); MCV 92.1 fL (80.0-100.0); Mean Platelet Volume 7.7; Monocytes # (A) 0.4 k/uL (0-1.0); Monocytes % (A) 6 %; Neutrophils # (A) 4.1 k/uL (1.3-7.7); Neutrophils % (A) 62 %; Platelet Count 252 k/uL (150-450); RBC 4.59 m/uL (3.80-5.40); RDW 13.6 % (11.5-15.5); WBC 6.5 k/uL (3.8-10.6)
[2019-02-15] MEDS: SERTRALINE 100 MG TAB PO SCH (08:29)
[2019-02-15] MEDS: CHOLECALCIFEROL 1,000 UNIT TAB PO SCH (08:29)
[2019-02-15] MEDS: ASPIRIN 81 MG PO SCH (08:29)
[2019-02-15] MEDS: PRASUGREL 10 MG TAB PO SCH (08:29)
[2019-02-15] MEDS: METOPROLOL TARTRATE 25 MG TAB PO SCH ×2 (08:29→21:05)
[2019-02-15] MEDS: LOSARTAN 25 MG TAB PO SCH (08:29)
[2019-02-15] MEDS: NIACIN TR 500 MG CAPLET PO SCH (08:29)
[2019-02-15] MEDS: FAMOTIDINE 20 MG TAB PO SCH ×2 (08:30→21:05)
[2019-02-15] MEDS ORDERED: VERAPAMIL 2.5 MG/ML 2 ML AMP ONE (18:37)
[2019-02-15] MEDS ORDERED: LIDOCAINE 1% INJ 10MG/ML (20 ML MDV) ONE (18:37)
[2019-02-15] MEDS ORDERED: HEPARIN SODIUM 1,000 UN/ML (10ML VL) ONE (18:38)
[2019-02-15] MEDS ORDERED: SODIUM CHLORIDE 0.9% 1,000 ML IV ONE (18:49)
[2019-02-15] MEDS ORDERED: MIDAZOLAM (PF) 2 MG/2 ML VIAL IVP ONE (18:50)
[2019-02-15] MEDS ORDERED: LIDOCAINE 1% INJ 10MG/ML (20 ML MDV) SQ ONE (18:55)
[2019-02-15] MEDS ORDERED: VERAPAMIL SYRINGE (5 MG/10 ML) INTRAARTER ONE (18:57)
[2019-02-15] MEDS ORDERED: BIVALIRUDIN BOLUS 250 MG/50 ML IV ONE (18:59)
[2019-02-15] MEDS ORDERED: BIVALIRUDIN 250 MG in SODIUM CHLORIDE 0.9% 50 ML IV ONE (19:01)
[2019-02-15] MEDS ORDERED: NITROGLYCERIN 1000MCG/10ML SYRINGE INTRACORON ONE (19:07)
[2019-02-15] MEDS ORDERED: MAG HYDROX/AL HYDROX/SIMETH 30 ML CUP PO PRN (19:13)
[2019-02-15] MEDS ORDERED: RX INFO: IV CONTRAST WAS GIVEN 1 EACH MISC MISCELLANE PRN (19:13)
[2019-02-15] MEDS ORDERED: ZOLPIDEM 5 MG TAB PO PRN (19:13)
[2019-02-15] MEDS ORDERED: NITROGLYCERIN SL TABS 0.4 MG TAB SUBLINGUAL PRN (19:13)
[2019-02-15] MEDS ORDERED: ATROPINE SULFATE 0.1 MG/ML 10ML SYRINGE IV PRN (19:13)
[2019-02-15] MEDS ORDERED: SODIUM CHLORIDE 0.9% 1,000 ML IV SCH (19:15)
--- NOTE | 2019-02-15 20:13 | PTCA ---
PERCUTANEOUSTRANS CORORONARY ANGIOGRAPHY DATE OF SERVICE: February 15, 2019. PERFORMING PHYSICIAN: Johnny Bustos MD, customer advocacy manager. PROCEDURE PERFORMED: Successful stenting of the mid right coronary artery using 3.5 x 28 mm Xience RAKESH with an excellent angiographic results and reduction of stenosis from 80% to 0%. INDICATION: This is a 53-year-old female patient who presented to the hospital a few days ago with chest discomfort and ruled in for acute non ST elevation myocardial infarction. She underwent heart catheterization by Dr. Delgado at that point and was found to have occluded LAD which was stented and also she was found to have severe disease involving the mid right coronary artery. She was brought today to undergo a PCI of the RCA. APPROACH: Right radial artery. COMPLICATION: None. LEVEL OF SEDATION: Moderate with sedation length of 17 minutes. PROCEDURE DESCRIPTION: After obtaining an informed consent, the patient was brought to the cardiac ear mold laboratory technician. The right radial artery was cannulated using micropuncture technique and a micropuncture wire passed easily. Then I placed a 6-Turkish sheath in the right radial artery. After that anticoagulation was initiated using Angiomax after the patient was given 2 mg of verapamil IA. I did engage the right coronary artery using JR4 guide. A run-through wire was used to wire the right coronary artery. After that I did balloon angioplasty using 2.5 x 12 mm NC balloon before I deployed 3.5 x 28 mm Xience RAKESH where the stent was positioned under fluoroscopy guidance and deployed under 16 atmospheres for 20 seconds. The following angiogram showed good angiographic results and the procedure was completed without any complication. POSTPROCEDURE MANAGEMENT: 1. Dual anti-platelet therapy. 2. Risk factor modifications. 3. Follow up with the patient. MMODL / IJN: [id number] /
--- NOTE | 2019-02-15 20:21 | LTR ---
February 15, 2019 Dr. Jamison Marc RE: Cristiane Hector Dear Dr. Mercado: Ms. Cristiane Young underwent today successful stenting of the RCA with good angiographic results and without any complication. Two days ago she underwent successful stenting of the left anterior descending artery. Thank you for allowing us to participate in her care and please do not hesitate to call if questions. Sincerely, MD ANICETO Irvin / JOSE DE JESUS: [id number] /
[2019-02-15] MEDS: MORPHINE SULFATE 4 MG/ML SYRINGE IV PRN (20:32)
[2019-02-15] MEDS ORDERED: ATORVASTATIN 80 MG TAB PO SCH (21:00)
[2019-02-15] MEDS: NITROGLYCERIN-D5W PMX 50 MG in DEXTROSE/WATER 1 250ML.BAG IV SCH (21:02)
[2019-02-16 07:00] LABS: Basophils % (A) 1 %; Eosinophils # (A) 0.2 k/uL (0-0.7); Eosinophils % (A) 3 %; HCT 43.6 % (34.0-46.0); HGB 14.1 gm/dL (11.4-16.0); Lymphocytes # (A) 2.2 k/uL (1.0-4.8); Lymphocytes % (A) 33 %; MCH 30.2 pg (25.0-35.0); MCHC 32.4 g/dL (31.0-37.0); MCV 93.2 fL (80.0-100.0); Mean Platelet Volume 7.3; Monocytes # (A) 0.4 k/uL (0-1.0); Monocytes % (A) 5 %; Neutrophils # (A) 3.8 k/uL (1.3-7.7); Neutrophils % (A) 57 %; Platelet Count 239 k/uL (150-450); RBC 4.67 m/uL (3.80-5.40); RDW 13.6 % (11.5-15.5); WBC 6.6 k/uL (3.8-10.6)
[2019-02-16 08:08] VITALS: RESP 16
[2019-02-16] MEDS: ASPIRIN 81 MG PO SCH (08:20)
[2019-02-16] MEDS: NIACIN TR 500 MG CAPLET PO SCH (08:20)
[2019-02-16] MEDS: SERTRALINE 100 MG TAB PO SCH (08:20)
[2019-02-16] MEDS: CHOLECALCIFEROL 1,000 UNIT TAB PO SCH (08:20)
[2019-02-16] MEDS: METOPROLOL TARTRATE 25 MG TAB PO SCH (08:20)
[2019-02-16] MEDS: FAMOTIDINE 20 MG TAB PO SCH (08:20)
[2019-02-16] MEDS: PRASUGREL 10 MG TAB PO SCH (08:20)
[2019-02-16 11:30] VITALS: BP 130/81; PULSE 48; TEMP 97.8
[2019-02-16] MEDS: LOSARTAN 25 MG TAB PO SCH (11:36)
--- NOTE | 2019-02-16 14:55 | P.PN ---
Subjective Progress Note Date: 02/16/19 This is a pleasant 53-year-old female with history of hypertension, hyperlipidemia, nicotine dependence, she smokes one pack of cigarettes per day, she also has history of premature coronary artery disease in 2 of her mother's brothers who had myocardial infarctions in their 40s. Patient presents to the hospital with symptoms of left-sided chest pressure and heaviness with radiation into the left shoulder and down the left arm, she also has significant discomfort in the scapula area. She has associated nausea with this and significant diaphoresis. Symptoms have been occurring off and on since Wednesday, becoming much more constant in nature. For this reason she came to the emergency room for further evaluation and treatment. Patient did undergo cardiac catheterization 10 years ago, was told at that time to have some blockage but not enough requiring stent placement. Her last office visit was with Dr. Farr, she is not sure who she has been reassigned to since then. Chest x-ray on presentation here did not show any acute cardiopulmonary process. Initial chest x-ray showed a normal sinus rhythm with non-specific ST-T wave changes noted in the anterior leads. Subsequent EKG performed this morning shows normal sinus rhythm with significant changes in the anterior lateral leads. Blood pressure on arrival here 178/90 with a heart rate in the 50s, 97% on room air. Blood pressure this morning 190/90 with a heart rate in the 70s, 96% on room air. White blood cell count is normal, hemoglobin 14.5, platelet count 226. Sodium 141, potassium 4.1, BUN 19 and creatinine 0.8. Troponin 0.13, 0.26, 1.3. BNP level 281. Patient was initiated on IV heparin in the emergency room, she is also on aspirin, Lipitor, Imdur, metoprolol 25 mg one tablet by mouth twice a day. At the time of my examination this morning, patient does still complain of some mid scapular discomfort. 02/14/2019 Patient was taken to the cardiac catheterization lab yesterday where she underwent angioplasty with stent placement of the LAD, she was also found to have severe disease involving the right coronary artery. EKG from this morning showed normal sinus rhythm with biphasic T waves noted in the anterior leads. Patient feels well denies any chest pain or difficulty in breathing states that her scapular and shoulder discomfort is completely resolved as compared with her presentation here. However at around 2:00 in the afternoon patient did develop some left shoulder and scapular discomfort, EKG showed normal sinus rhythm with similar changes in the anteriorleads, Patient was given a sublingual nitro with some relief of symptoms. She will be scheduled tomorrow to undergo angioplasty and stenting of the right coronary artery.I pressure 127/60 with a heart rate in the 60s, 96% on room ai 02/16/2019 Patient did undergo angioplasty with stenting of the RCA yesterday, she was seen and examined this morning, overall doing well. Hemodynamically stable. Eager to be discharged home today. Denies any chest discomfort, no arm or scapular discomfort. Objective - Vital Signs Vital signs: Vital Signs Temp 97.8 F 02/16/19 11:30 Pulse 48 L 02/16/19 11:30 Resp 16 02/16/19 11:30 BP 130/81 02/16/19 11:30 Pulse Ox 97 02/16/19 11:30 Intake & Output 02/15/19 02/16/19 02/16/19 18:59 06:59 18:59 Intake Total 50 17 240 Output Total 600 Balance 50 17 -360 Weight 91.8 kg Intake: IV 50 17 Oral 0 240 Output: Urine 600 Other: Voiding Method Toilet Toilet Toilet # Voids 2 1 - Exam PHYSICAL EXAMINATION: GENERAL: 83-year-old female in no acute distress at the time of my examination HEENT: Head is atraumatic, normocephalic. Pupils equal, round. Sclera anicteric. Conjunctiva are clear. Mucous membranes of the mouth are moist. Neck is supple. There is no elevated jugular venous pressure. No carotid bruit is heard. HEART EXAMINATION: Heart S1, S2 normal. No murmur or gallop heard. CHEST EXAMINATION: Lungs are clear to auscultation and precussion. No chest wall tenderness is noted on palpation or with deep breathing. Mid scapular discomfort ABDOMEN: Soft, nontender. Bowel sounds are heard. No organomegaly noted. EXTREMITIES: 2+ peripheral pulses with no evidence of peripheral edema and no calf tenderness noted.right radial sites clean and dry, good distal pulse. NEUROLOGIC patient is awake, alert and oriented 3 . - Labs CBC & Chem 7: 02/16/19 06:33 02/16/19 06:33 Assessment and Plan Plan: Assessment and plan #1 symptoms of left-sided chest pressure and heaviness with radiation down the left arm and into the scapular area with associated nausea and diaphoresis suggesting acute coronary syndrome. EKG shows normal sinus rhythm with ST-T wave changes noted in the anterior lateral leads. Troponins 0.1, 0.2, 1.3. Patient did have a cardiac catheterization performed 10 years ago, was told at that time to have mild blockage not requiring stenting. Status post angioplasty and stenting of the LAD and RCA #2 hypertension, accelerated #3 hyperlipidemia #4 nicotine dependence #5 family history of premature coronary artery disease Plan Patient may be discharged home today from cardiology's perspective, we will make her a follow-up appointment in the office with Dr. Delgado post discharge. DNP note has been reviewed, I agree with a documented findings and plan of care. Patient was seen and examined.
== END 2019-02-16 13:24 | disposition home or self-care (01) | DRG 247 ==
LOC: EC 14:37 → 3SCARD 16:38
PROVIDERS: ADMIT Internal Medicine; ATTEND Internal Medicine
PROC: 4A023N7 Measurement of Cardiac Sampling and Pressure, Left Heart, Percutaneous Approach (ICD-10-PCS; principal; 2019-02-13 10:17)
PROC: B2110ZZ Fluoroscopy of Multiple Coronary Arteries using High Osmolar Contrast (ICD-10-PCS; principal; 2019-02-13 10:17)
PROC: 027034Z Dilation of Coronary Artery, One Artery with Drug-eluting Intraluminal Device, Percutaneous Approach (ICD-10-PCS; 2019-02-13 10:17)
PROC: 027034Z Dilation of Coronary Artery, One Artery with Drug-eluting Intraluminal Device, Percutaneous Approach (ICD-10-PCS; 2019-02-15)
DX: I21.4 Non-ST elevation (NSTEMI) myocardial infarction (principal); E78.00 Pure hypercholesterolemia, unspecified; E78.5 Hyperlipidemia, unspecified; F17.200 Nicotine dependence, unspecified, uncomplicated; I10 Essential (primary) hypertension; I25.119 Atherosclerotic heart disease of native coronary artery with unspecified angina pectoris; Z79.82 Long term (current) use of aspirin; Z79.899 Other long term (current) drug therapy; Z80.1 Family history of malignant neoplasm of trachea, bronchus and lung; Z80.3 Family history of malignant neoplasm of breast; Z82.49 Family history of ischemic heart disease and other diseases of the circulatory system; I25.2 Old myocardial infarction; Z88.1 Allergy status to other antibiotic agents; Z88.0 Allergy status to penicillin
CPT/HCPCS: 36415; 71046; 80048; 82565; 83880; 84484; 85025; 85610; 85730; 93005; 93306; 93458; 96365; 96376; 99285; C1874

== ENCOUNTER → 2019-03-14 | Outpatient (CLI) | payer OTHER ==
[2019-03-14 17:18] LABS: LDL Cholesterol,Calculated 81.6 mg/dL (0.0-131.0); VLDL Calculation 33.4 mg/dL (5.00-40.00)
== END | disposition home or self-care (01) ==
LOC: LABWHC1 08:20
PROVIDERS: ATTEND Internal Medicine Cardiovascular Disease
DX: I25.10 Atherosclerotic heart disease of native coronary artery without angina pectoris (principal); E78.5 Hyperlipidemia, unspecified
CPT/HCPCS: 36415; 80061; 84450; 84460

== ENCOUNTER → 2019-08-08 | Outpatient (CLI) | payer OTHER ==
[2019-08-08 08:12] VITALS: BP 136/82; PULSE 51; RESP 18; TEMP 98.7
--- NOTE | 2019-08-08 08:37 | P.HPOB ---
History of Present Illness H&P Date: 08/08/19 Chief Complaint: The patient is here for her routine gynecologic exam and ma mmogram. This is a 53-year-old with an LMP of 2015. The patient is without gynecologic complaints and denies any postmenopausal bleeding. Review of Systems The patient has gained 5 pounds over the last year. She denies respiratory, cardiac, or G.I. problems. 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 History of Any Multi-Drug Resistant Organisms: None Reported Past Surgical History: Section, Heart Catheterization, Orthopedic Surgery Additional Past Surgical History / Comment(s): Colonoscopy 01/09/2016(next after 10yrs). Coronary artery stents 2019. Past Anesthesia/Blood Transfusion Reactions: No Reported Reaction Additional Past Anesthesia/Blood Transfusion Reaction / Comment(s): Never had a blood transfusion Past Psychological History: No Psychological Hx Reported Smoking Status: Current every day smoker (5 cigarettes per day) Past Alcohol Use History: None Reported Past Drug Use History: None Reported Additional History: She has been since 1988 and works at the [employer]. - Past Family History Mother Family Medical History: Cancer Additional Family Medical History / Comment(s): Breast and ovarian cancer. Sister(s) Family Medical History: Cancer Additional Family Medical History / Comment(s): Breast cancer. Another sister from lung cancer. Medications and Allergies Home Medications Medication Instructions Recorded Confirmed Type Aspirin [Adult Low Dose Aspirin EC] 81 mg PO DAILY 10/08/16 02/12/19 History Atorvastatin [Lipitor] 80 mg PO HS 10/08/16 02/12/19 History Metoprolol Tartrate 25 mg PO BID 10/08/16 02/12/19 History Ranitidine HCl [Zantac] 150 mg PO BID 10/12/16 02/12/19 History Cholecalciferol (Vitamin D3) 2,000 unit PO DAILY 02/12/19 02/12/19 History [Vitamin D3] Niacin [Niaspan] 500 mg PO DAILY 02/12/19 02/12/19 History Sertraline [Zoloft] 100 mg PO DAILY 02/12/19 02/12/19 History Isosorbide Mononitrate ER [Imdur] 30 mg PO DAILY #30 19 02/12/19 Rx Losartan [Cozaar] 25 mg PO DAILY #30 tab 02/16/19 Rx Nitroglycerin Sl Tabs [Nitrostat] 0.4 mg SUBLINGUAL Q5M PRN #25 tab 02/16/19 Rx Prasugrel [Effient] 10 mg PO DAILY #30 tab 02/16/19 Rx Varenicline Tartrate [Chantix 1 mg PO DAILY 08/08/19 08/08/19 History Continuing Pack] Allergies Allergy/AdvReac Type Severity Reaction Status Date / Time cephalexin [From Keflex] Allergy Rash/Hives Verified 08/08/19 08:06 Penicillins Allergy Rash/Hives Verified 08/08/19 08:06 Exam Vital Signs Temp Pulse Resp BP Pulse Ox 08/08/19 08:10 98.7 F 51 L 18 136/82 96 Intake and Output 08/07/19 08/08/19 08/08/19 22:59 06:59 14:59 Other: Weight 94.801 kg Height 5 feet 4 inches, weight 209 pounds, BMI 35.9. This is a well-developed well-nourished white female who is alert and oriented times 3 in no acute distress. HEENT: Within normal limits. NECK: Supple without mass or thyromegaly. CHEST AND LUNGS: Clear to auscultation. HEART: Regular rate and rhythm. BREASTS: Are without mass or discharge. AXILLARY EXAM: Negative for adenopathy. BACK: Negative for CVA tenderness. ABDOMEN: Soft, nontender, without palpable masses. PELVIC EXAM: Normal external genitalia with mild atrophy. Cervix and vagina appear normal mild atrophy. There is no unusual discharge. There is no evidence of prolapse. The uterus is midposition, nongravid size and nontender. There are no palpable adnexal masses or tenderness. RECTAL EXAM: Rectovaginal exam is negative for mass or tenderness and is negative for occult blood. EXTREMITIES: Nontender. IMPRESSION: 1. 53-year-old menopausal female with normal gynecologic exam. 2. Strong family history of breast and ovarian cancer. PLAN: 1. Pap smear was deferred since she had a normal one on 05/03/2018. 2. Self breast awareness was discussed with the patient. 3. Screening mammogram will be done today. 4. Osteoporosis prevention was discussed. I have stressed the importance of adequate calcium, vitamin D and regular exercise. Recommended amounts of calci um and vitamin D were also discussed. 5. Yearly pelvic ultrasound because of her mother's history of ovarian cancer. The order slip was given to the patient for this. We again have discussed genetic cancer counseling and screening because of her family history. She is again declining this. 6. She was advised to return in one year for her annual well woman exam.
--- NOTE | 2019-08-10 10:06 | MM ---
Reason for exam: screening (asymptomatic). Last mammogram was performed 1 year and 3 months ago. History: Patient is postmenopausal. Family history of breast cancer in sister at age 44 and premenopausal breast cancer in mother at age 50. Took hormonal contraceptives for 10 years. Physical Findings: A clinical breast exam by your physician is recommended on an annual basis and results should be correlated with mammographic findings. MG Screening Mammo w CAD Bilateral CC and MLO view(s) were taken. Prior study comparison: May 03, 2018, bilateral MG screening mammo w CAD. February 09, 2017, bilateral MG screening mammo w CAD. The breast tissue is heterogeneously dense. This may lower the sensitivity of mammography. Benign appearing bilateral calcifications. No suspicious abnormality. No significant changes when compared with prior studies. ASSESSMENT: Benign, BI-RAD 2 RECOMMENDATION: Routine screening mammogram of both breasts in 1 year.
== END | disposition home or self-care (01) ==
LOC: WWCWWP 07:58
PROVIDERS: ATTEND Obstetrics & Gynecology
DX: Z12.31 Encounter for screening mammogram for malignant neoplasm of breast (principal)
CPT/HCPCS: 77067

== ENCOUNTER → 2019-08-15 | Outpatient (CLI) | payer OTHER ==
--- NOTE | 2019-08-15 16:59 | US ---
EXAMINATION TYPE: US pelvic complete DATE OF EXAM: 08/15/2019 COMPARISON: Pelvic ultrasound May 11, 2018 CLINICAL HISTORY: Z80.41 F/U OVARIAN CA. TECHNIQUE: . Transabdominal sonographic images of the pelvis were acquired. Date of LMP: Postmenopausal EXAM MEASUREMENTS: Uterus: 9.1 x 3.8 cm on transabdominal sagittal images Endometrial Stripe: 0.4 cm Right Ovary: 2.5 x 1.6 x 1.2 cm Left Ovary: 1.8 x 1.2 x 1.2 cm 1. Uterus: probable fibroid measuring 2.4 x 1.8 x 1.9cm 2. Endometrium: wnl 3. Right Ovary: wnl 4. Left Ovary: wnl 5. Bilateral Adnexa: wnl 6. Posterior cul-de-sac: wnl IMPRESSION: Probable intramural 2.4 cm uterine fibroid lower uterine body is redemonstrated. No new a dnexal lesions.
--- NOTE | 2019-08-16 14:25 | P.PN ---
Progress Note - Text Progress Note Date: 08/16/19 OUTPATIENT FOLLOW-UP NOTE TEST(S)/RESULTS: Pelvic ultrasound done on 08/15/2019 shows a 2.4 cm uterine fibroid. This fibroid was previously seen on her last ultrasound. The ovaries are within normal limits. METHOD OF NOTIFICATION: A message with this result was left on the patient's voicemail. PATIENT COMMENTS: DIAGNOSIS: Small uterine fibroid and otherwise unremarkable pelvic ultrasound. DISCUSSION: PLAN: She was advised to return in one year for her annual well woman exam. We will continue to get yearly pelvic ultrasounds because of her family history.
== END | disposition home or self-care (01) ==
LOC: RADUSWWP 16:07
PROVIDERS: ATTEND Obstetrics & Gynecology
DX: Z80.41 Family history of malignant neoplasm of ovary (principal)
CPT/HCPCS: 76856

== ENCOUNTER → 2020-09-04 | Outpatient (CLI) | payer OTHER ==
[2020-09-04 09:40] VITALS: BP 127/75; PULSE 54; RESP 18; TEMP 98.3
--- NOTE | 2020-09-04 10:28 | P.HPOB ---
History of Present Illness H&P Date: 09/04/20 Chief Complaint: The patient is here for her routine gynecologic exam and ma mmogram. This is a 54-year-old with an LMP of 2015. The patient is without gynecologic complaints and denies any postmenopausal bleeding. Review of Systems She has lost about 8 pounds over the past year. She denies respiratory or cardiac problems. GI: Occasional gastric reflux which sometimes interferes with swallowing. She was started on omeprazole for the reflux. 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 History of Any Multi-Drug Resistant Organisms: None Reported Past Surgical History: Section, Heart Catheterization, Orthopedic Surgery Additional Past Surgical History / Comment(s): Colonoscopy 01/09/2016(next after 10yrs). Coronary artery stents 2019. Past Anesthesia/Blood Transfusion Reactions: No Reported Reaction Additional Past Anesthesia/Blood Transfusion Reaction / Comment(s): Never had a blood transfusion Past Psychological History: No Psychological Hx Reported Smoking Status: Current every day smoker (She is down to 2 cigarettes per day.) Past Alcohol Use History: None Reported Past Drug Use History: None Reported Additional History: She has been since 1988 and is sexually active. She works at the [employer]. - Past Family History Mother Family Medical History: Cancer Additional Family Medical History / Comment(s): Breast and ovarian cancer. Sister(s) Family Medical History: Cancer Additional Family Medical History / Comment(s): Breast cancer. Another sister from lung cancer. Medications and Allergies Home Medications and Allergies Comment(s): She was also started on omeprazole for gastric reflux. Home Medications Medication Instructions Recorded Confirmed Type Aspirin [Adult Low Dose Aspirin EC] 81 mg PO DAILY 10/08/16 09/04/20 History Atorvastatin [Lipitor] 80 mg PO HS 10/08/16 09/04/20 History Metoprolol Tartrate 25 mg PO BID 10/08/16 09/04/20 History Cholecalciferol (Vitamin D3) 2,000 unit PO DAILY 02/12/19 09/04/20 History [Vitamin D3] Niacin [Niaspan] 500 mg PO DAILY 02/12/19 09/04/20 History Sertraline [Zoloft] 100 mg PO DAILY 02/12/19 09/04/20 History Isosorbide Mononitrate ER [Imdur] 30 mg PO DAILY #30 02/16/19 09/04/20 Rx Losartan [Cozaar] 25 mg PO DAILY #30 tab 02/16/19 09/04/20 Rx Nitroglycerin Sl Tabs [Nitrostat] 0.4 mg SUBLINGUAL Q5M PRN #25 tab 02/16/19 08/08/19 Rx Allergies Allergy/AdvReac Type Severity Reaction Status Date / Time cephalexin [From Keflex] Allergy Rash/Hives Verified 09/04/20 09:33 Penicillins Allergy Rash/Hives Verified 09/04/20 09:33 Exam Vital Signs Temp Pulse Resp BP Pulse Ox 09/04/20 09:35 98.3 F 54 L 18 127/75 96 Intake and Output 09/03/20 09/04/20 09/04/20 22:59 06:59 14:59 Other: Weight 91.172 kg Height 5 feet 5-1/2 inches, weight 201 pounds, BMI 32.9. This is a well-developed well-nourished white female who is alert and oriented times 3 in no acute distress. HEENT: Within normal limits. NECK: Supple without mass or thyromegaly. CHEST AND LUNGS: Clear to auscultation. HEART: Regular rate and rhythm. BREASTS: Are without mass or discharge. AXILLARY EXAM: Negative for adenopathy. BACK: Negative for CVA tenderness. ABDOMEN: Soft, nontender, without palpable masses. PELVIC EXAM: Normal external genitalia with mild atrophy. Cervix and vagina appear normal with mild atrophy. The cervix is slightly stenotic secondary to atrophy. There is no unusual discharge. There is no evidence of prolapse. The uterus is midposition, nongravid size and nontender. There are no palpable adnexal masses or tenderness. RECTAL EXAM: Rectovaginal exam is negative for mass or tenderness and is negative for occult blood. EXTREMITIES: Nontender. IMPRESSION: 1. 54-year-old menopausal female with normal gynecologic exam. 2. Strong family history of breast and ovarian cancer. PLAN: 1. Pap smear cotest was performed. 2. Self breast awareness was discussed with the patient. 3. Screening mammogram will be done today. 4. Pelvic ultrasound was recommended because of her family history of ovarian cancer. The order slip was given to the patient for this. 5. We have again discussed the option of cancer genetic testing and counseling. Now that this counseling and testing is available through the [facility] in [place], she states she will consider this. Information on this program was given to the patient. She was instructed to call if she decides to proceed with this. 6.Osteoporosis prevention was discussed. I have stressed the importance of adequate calcium, vitamin D and regular exercise. Recommended amounts of calcium and vitamin D were also discussed. 7. She was advised to return in one year for her annual well woman exam.
--- NOTE | 2020-09-05 14:27 | MM ---
Reason for exam: screening (asymptomatic). Last mammogram was performed 1 year and 1 month ago. History: Patient is postmenopausal. Family history of breast cancer in sister at age 44 and premenopausal breast cancer in mother at age 50. Took hormonal contraceptives for 10 years. Physical Findings: A clinical breast exam by your physician is recommended on an annual basis and results should be correlated with mammographic findings. MG Screening Mammo w CAD Bilateral CC and MLO view(s) were taken. Prior study comparison: August 08, 2019, bilateral MG screening mammo w CAD. May 03, 2018, bilateral MG screening mammo w CAD. The breast tissue is heterogeneously dense. This may lower the sensitivity of mammography. No significant changes when compared with prior studies. ASSESSMENT: Negative, BI-RAD 1 RECOMMENDATION: Routine screening mammogram of both breasts in 1 year. Patient should continue monthly self breast exams. A negative report should not preclude additional follow up of suspicious palpable abnormalities.
--- NOTE | 2020-09-10 11:42 | P.PN ---
Progress Note - Text Progress Note Date: 09/10/20 OUTPATIENT FOLLOW-UP NOTE TEST(S)/RESULTS: test results from 09/04/2020 include negative Pap smear with negative high-risk HPV and benign mammogram. METHOD OF NOTIFICATION: a message with these results was left on the patient's voice mail. PATIENT COMMENTS: DIAGNOSIS: negative Pap smear cotest and benign mammogram. DISCUSSION: PLAN: the patient is to return in one year for her annual well woman exam.
== END | disposition home or self-care (01) ==
LOC: WWCWWP 09:25
PROVIDERS: ATTEND Obstetrics & Gynecology
DX: Z12.31 Encounter for screening mammogram for malignant neoplasm of breast (principal)
CPT/HCPCS: 77067

== ENCOUNTER → 2022-03-10 | Outpatient (CLI) | payer OTHER ==
[2022-03-10 12:48] VITALS: BP 115/68; PULSE 52; RESP 17; TEMP 98.3
--- NOTE | 2022-03-10 13:27 | P.HPOB ---
History of Present Illness H&P Date: 03/10/22 Chief Complaint: The patient is here for her routine gynecologic exam and ma mmogram. This is a 56-year-old with an LMP of 2015. The patient is without gynecologic complaints. Review of Systems The patient's weight has been stable over the last year. She denies respiratory, cardiac, or G.I. problems. 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 She does have a history of small uterine fibroids. History of Any Multi-Drug Resistant Organisms: None Reported Past Surgical History: Section, Heart Catheterization, Orthopedic Surgery Additional Past Surgical History / Comment(s): Colonoscopy 01/09/2016(next after 10yrs). Coronary artery stents 2019. Past Anesthesia/Blood Transfusion Reactions: No Reported Reaction Additional Past Anesthesia/Blood Transfusion Reaction / Comment(s): Never had a blood transfusion Past Psychological History: No Psychological Hx Reported Smoking Status: Current every day smoker (10 cigarettes per day) Past Alcohol Use History: None Reported Past Drug Use History: None Reported Additional History: She has been since 1988 and is sexually active. She works at the [employer]. - Past Family History Mother Family Medical History: Cancer Additional Family Medical History / Comment(s): Breast and ovarian cancer. Sister(s) Family Medical History: Cancer Additional Family Medical History / Comment(s): Breast cancer. Another sister from lung cancer. Medications and Allergies Home Medications Medication Instructions Recorded Confirmed Type Aspirin [Adult Low Dose Aspirin EC] 81 mg PO DAILY 10/08/16 03/10/22 History Atorvastatin [Lipitor] 80 mg PO HS 10/08/16 03/10/22 History Metoprolol Tartrate 25 mg PO BID 10/08/16 03/10/22 History Cholecalciferol (Vitamin D3) 2,000 unit PO DAILY 02/12/19 03/10/22 History [Vitamin D3] Niacin [Niaspan] 500 mg PO DAILY 02/12/19 03/10/22 History Sertraline [Zoloft] 100 mg PO DAILY 02/12/19 03/10/22 History Isosorbide Mononitrate ER [Imdur] 30 mg PO DAILY #30 02/16/19 03/10/22 Rx Losartan [Cozaar] 25 mg PO DAILY #30 tab 02/16/19 03/10/22 Rx Nitroglycerin Sl Tabs [Nitrostat] 0.4 mg SUBLINGUAL Q5M PRN #25 tab 02/16/19 03/10/22 Rx Allergies Allergy/AdvReac Type Severity Reaction Status Date / Time cephalexin [From Keflex] Allergy Rash/Hives Verified 03/10/22 12:43 Penicillins Allergy Rash/Hives Verified 03/10/22 12:43 Exam Vital Signs Temp Pulse Resp BP Pulse Ox 03/10/22 12:45 98.3 F 52 L 17 115/68 95 Intake and Output 03/09/22 03/10/22 03/10/22 22:59 06:59 14:59 Other: Weight 91.172 kg Height 5 feet 4 inches, weight 201 pounds, BMI 34.5. This is a well-developed well-nourished white female who is alert and oriented times 3 in no acute distress. HEENT: Within normal limits. NECK: Supple without mass or thyromegaly. CHEST AND LUNGS: Clear to auscultation. HEART: Regular rate and rhythm. BREASTS: Are without mass or discharge. AXILLARY EXAM: Negative for adenopathy. BACK: Negative for CVA tenderness. ABDOMEN: Soft, nontender, without palpable masses. PELVIC EXAM: Normal external genitalia with mild atrophy. Cervix and vagina appear normal with mild atrophy. There is no unusual discharge. There is no evidence of prolapse. The uterus is midposition, nongravid size and nontender. There are no palpable adnexal masses or tenderness. RECTAL EXAM: Rectovaginal exam is negative for mass or tenderness and is negative for occult blood. EXTREMITIES: Nontender. IMPRESSION: 1. 56-year-old menopausal female with normal gynecologic exam. 2. History of small uterine fibroids. 3. Family history of breast cancer in her mother and sister, and ovarian cancer in her mother. PLAN: 1. Pap smear was deferred since she had a negative Pap smear, test on 09/04/2020. 2. Self breast awareness was discussed with the patient. We have also discussed symptoms associated with inflammatory breast cancer. 3. Screening mammogram will be done today. 4. Osteoporosis prevention was discussed. I have stressed the importance of adequate calcium, vitamin D and regular exercise. Recommended amounts of calcium and vitamin D were also discussed. We will plan on doing Baseline bone density screening at age 58. 5. We have discussed her increased risk for breast and ovarian cancer because of her family history. We have discussed the option of genetic cancer testing for these types of cancer. She is declining this at this time. We will continue yearly mammograms and yearly pelvic ultrasounds. A pelvic ultrasound was not done last year as recommended. The order slip for the pelvic ultrasound was given to the patient. 6. She has completed her Covid vaccination series. 7. We have discussed many reasons why it is important to quit smoking. I have recommended that she quit. She can discuss ways to quit with her PCP. 8. She was advised to return in one year for her annual well woman exam.
--- NOTE | 2022-03-11 07:45 | MM ---
Reason for Exam: Screening (asymptomatic). Last mammogram was performed 1 year(s) and 6 month(s) ago. Patient History: Menarche at age 11. First Full-Term at age 26. Postmenopausal. Patient used Hormonal Contraceptives for 10 years. Sister had breast cancer, age 44. Mother had breast cancer, age 50. Risk Values: Jeanna 5 year model risk: 4.6%. NCI Lifetime model risk: 24.2%. Prior Study Comparison: 05/03/2018 Bilateral Screening Mammogram, [facility]. 08/08/2019 Bilateral Screening Mammogram, [facility]. 09/04/2020 Bilateral Screening Mammogram, [facility]. Tissue Density: The breast tissue is heterogeneously dense. This may lower the sensitivity of mammography. Findings: Analyzed By CAD. There is no suspicious group of microcalcifications or new suspicious mass in either breast. Overall Assessment: Negative, BI-RAD 1 Management: Screening Mammogram of both breasts in 1 year. A clinical breast exam by your physician is recommended on an annual basis and results should be correlated with mammographic findings. Electronically signed and approved by: Harrison Garcia M.D. Radiologis
== END ==
LOC: WWCWWP 12:37
PROVIDERS: ATTEND Obstetrics & Gynecology
DX: Z12.31 Encounter for screening mammogram for malignant neoplasm of breast (principal); Z01.419 Encounter for gynecological examination (general) (routine) without abnormal findings; Z78.0 Asymptomatic menopausal state; I25.10 Atherosclerotic heart disease of native coronary artery without angina pectoris; E78.5 Hyperlipidemia, unspecified; I10 Essential (primary) hypertension; F17.210 Nicotine dependence, cigarettes, uncomplicated; Z79.82 Long term (current) use of aspirin; Z88.1 Allergy status to other antibiotic agents; Z88.0 Allergy status to penicillin; Z80.3 Family history of malignant neoplasm of breast; Z80.41 Family history of malignant neoplasm of ovary; Z87.42 Personal history of other diseases of the female genital tract
CPT/HCPCS: 77063; 77067

== ENCOUNTER → 2022-06-16 | Outpatient (CLI) | payer OTHER ==
--- NOTE | 2022-06-16 15:15 | US ---
EXAMINATION TYPE: US venous doppler duplex LE DATE OF EXAM: 06/16/2022 1:00 PM COMPARISON: NONE CLINICAL HISTORY: Bilateral lower leg pain SIDE PERFORMED: Bilateral TECHNIQUE: The lower extremity deep venous system is examined utilizing real time linear array sonog michael with graded compression, doppler sonography and color-flow sonography. FINDINGS: VESSELS IMAGED: Common Femoral Vein Deep Femoral Vein Greater Saphenous Vein * Femoral Vein Popliteal Vein Small Saphenous Vein * Proximal Calf Veins (* superficial vessels) Right Leg: Negative for DVT Left Leg: Negative for DVT IMPRESSION: No evidence for DVT within the bilateral lower extremities imaged from the groin to the upper calves.
--- NOTE | 2022-06-18 06:52 | US ---
EXAMINATION TYPE: US arterial LE multi level DATE OF EXAM: 06/16/2022 1:51 PM CLINICAL HISTORY: Bilateral claudication, right worse than left. Bilateral foot burning sensation. Paresthesia of skin. History of coronary artery disease, hypertension, coronary stents, and hyperlipi demia. Doppler Waveforms: Right: Monophasic Left: Monophasic Ankle-Brachial Indices: Right: 0.42 Left: 0.74 Toe Brachial Indices: Right: 0.23 Left: 0.51 Loss of phasicity bilaterally. Diminished KOREY and TBI values greater in the right lower extremity. IMPRESSION: At least mild peripheral arterial disease in the left lower extremities. Moderate to sev ere peripheral arterial disease is noted in the right lower extremity. Further workup and follow-up a dvised.
== END | disposition home or self-care (01) ==
LOC: RADUSWWP 12:13
PROVIDERS: ATTEND Family Medicine
DX: M79.604 Pain in right leg (principal); M79.605 Pain in left leg; R20.2 Paresthesia of skin
CPT/HCPCS: 93923; 93970

== ENCOUNTER 2022-07-13 07:07 | Day surgery (SDC) | payer OTHER ==
[2022-07-09 15:33] VITALS: BMI 34.8
[~2022-07-13 07:07] MED LIST: ALPRAZolam 0.25 MG TAB PO PRN; ALPRAZolam 0.5 MG TAB PO PRN; ASPIRIN 325 MG TAB PO PRN; HEPARIN SODIUM,PORCINE 10,000 UNIT in SODIUM CHLORIDE 0.9% 1,000 ML IRRIGATION PRN; HEPARIN SODIUM,PORCINE 2,500 UNIT in SODIUM CHLORIDE 0.9% 250 ML IRRIGATION PRN; SODIUM CHLORIDE 0.9% 1,000 ML in EMPTY BAG 1 BAG IV ONE; ZOLPIDEM 5 MG TAB PO PRN
[2022-07-13] MEDS ORDERED: SODIUM CHLORIDE 0.9% 1,000 ML IV ONE (07:45)
[2022-07-13 07:54] VITALS: RESP 16; TEMP 97.2
[2022-07-13 08:12] LABS: Basophils % (A) 1 %; Eosinophils # (A) 0.2 k/uL (0-0.7); Eosinophils % (A) 3 %; HCT 43.1 % (34.0-46.0); HGB 15.3 gm/dL (11.4-16.0); Lymphocytes # (A) 1.7 k/uL (1.0-4.8); Lymphocytes % (A) 28 %; MCH 33.3 pg (25.0-35.0); MCHC 35.4 g/dL (31.0-37.0); MCV 94.3 fL (80.0-100.0); Mean Platelet Volume 8.1; Monocytes # (A) 0.4 k/uL (0-1.0); Monocytes % (A) 6 %; Neutrophils # (A) 3.8 k/uL (1.3-7.7); Neutrophils % (A) 61 %; Platelet Count 240 k/uL (150-450); RBC 4.57 m/uL (3.80-5.40); RDW 12.8 % (11.5-15.5); WBC 6.2 k/uL (3.8-10.6)
[2022-07-13 08:35] LABS: African American GFR (CKD) >90 (>60 ml/min/1.73 sqM); Anion Gap 6 mmol/L; Blood Urea Nitrogen 16 mg/dL (7-17); Calcium 9.5 mg/dL (8.4-10.2); Carbon Dioxide 25 mmol/L (22-30); Chloride 108 mmol/L (98-107); Glucose 104 mg/dL (74-99); Non-African American GFR(CKD) 85 (>60 ml/min/1.73 sqM); Potassium 4.7 mmol/L (3.5-5.1); Sodium 139 mmol/L (137-145)
[2022-07-13] MEDS ORDERED: LIDOCAINE 1% INJ 10MG/ML (30 ML VIAL-PF) SQ ONE (09:05)
[2022-07-13] MEDS ORDERED: MIDAZOLAM 2 MG/2 ML VIAL IV ONE (09:05)
[2022-07-13] MEDS ORDERED: fentaNYL (PF) 50 MCG/ML 2 ML AMP IV ONE (09:05)
[2022-07-13] MEDS ORDERED: VERAPAMIL SYRINGE (5 MG/10 ML) INTRAARTER ONE (09:06)
[2022-07-13] MEDS ORDERED: IOPAMIDOL-370 125ML BTL INJ ONE (09:34)
--- NOTE | 2022-07-13 09:44 | P.OP ---
Date of Procedure: 07/13/22 Description of Procedure: Preoperative diagnosis: Lower extremity claudication Duchesne classification 3 Postop diagnosis: Lower extremity claudication Tr classification 3, right femoral artery occlusive disease greater than 90% stenosis, bilateral superficial femoral artery occlusions with above-knee popliteal reconstitution Procedure: Aortogram with bilateral lower extremity runoffs via left radial artery access under ultrasound guidance Surgeon: Rodney Anesthesia: Moderate sedation times 17 minutes Estimated blood loss: 2cc Complications: None Condition: Stable Indication for procedure: 56-year-old female presented to the office secondary to bilateral lower extremity pain with ambulation after a couple of blocks. She underwent arterial Doppler which demonstrated significant disease and decreased ABIs on the right measuring 0.42 and .7 on the left. She presents today for aortogram with runoff for further delineation of disease in her lower extremities. Findings: Aorta: Patent with atherosclerotic, calcific disease throughout without any evidence of significant stenosis. Bilateral renal arteries are patent without stenosis. Iliacs: Bilateral common, internal and external iliac arteries with atherosclerotic disease throughout. No significant stenosis. Ectasia noted at the right common iliac Femorals: Right common femoral artery occlusive disease with large calcific plaque noted with greater than 90% stenosis. Left common femoral artery is patent with mild atherosclerotic disease. Bilateral superficial femoral arteries have dense calcification with multiple areas of stenosis and occlusion noted with reconstitution above-knee popliteal artery. Profundus femoris arteries are widely patent on the left with some stenosis at the takeoff on the right. Popliteal: Bilateral popliteal arteries are widely patent without any significant stenosis. Tibials: Three-vessel takeoff bilaterally. Right anterior tibial artery diminishes at the midportion of the lower leg with mild stenosis noted with diminished flow to the foot. Right posterior tibial artery is widely patent and fills the foot. Left lower extremity two-vessel runoff to the ankle and foot noted Operative narrative: After written informed consent was obtained the patient all risks benefits competitions were described the patient is brought to the Restaurant Worker and laid in a supine position. The area of the left wrist was prepped and draped in the usual sterile fashion. Julio test was completed and was negative for any decrease flow to the hand. Local anesthesia with moderate sedation was performed with continuous pulse ox monitoring and EKG monitoring. Utilizing ultrasound the left radial artery was visualized and shown to be patent without any significant plaque. Utilizing a multipurpose needle under ultrasound guidance the artery was accessed. Guidewire was placed followed by 5-Albanian slender sheath. 035 Glidewire was then placed into the aorta followed by pigtail catheter. Angiogram was then obtained of the aorta. Catheter was then placed at the bifurcation and lower extremity runoffs were obtained. Once completed all guidewires, catheters and sheaths were removed and TR band was placed for hemostasis. Patient tolerated procedure well was sent to PACU for recovery. Plan - Discharge Summary Discharge Rx Participant: Yes New Discharge Prescriptions: No Action RX: Metoprolol Tartrate 25 mg PO BID RX: Aspirin [Adult Low Dose Aspirin EC] 81 mg PO DAILY RX: Niacin [Niaspan] 500 mg PO HS RX: Cholecalciferol (Vitamin D3) [Vitamin D3] 2,000 unit PO DAILY RX: Sertraline [Zoloft] 100 mg PO HS RX: Nitroglycerin Sl Tabs [Nitrostat] 0.4 mg SUBLINGUAL Q5M PRN #25 tab PRN Reason: Chest Pain RX: Isosorbide Mononitrate ER [Imdur] 30 mg PO DAILY #30 RX: Rosuvastatin Calcium 5 mg PO HS Losartan [Cozaar] 50 mg PO DAILY Ubidecarenone [Co Q-10] 100 mg PO DAILY RX: Folic Acid 1 mg PO HS Ferrous Sulfate [Feosol] 325 mg PO DAILY Nicotine 7Mg/24Hr Patch [Habitrol] 1 patch TRANSDERM DAILY Discharge Medication List RX: Aspirin [Adult Low Dose Aspirin EC] 81 mg PO DAILY 10/08/16 [History] RX: Metoprolol Tartrate 25 mg PO BID 10/08/16 [History] RX: Cholecalciferol (Vitamin D3) [Vitamin D3] 2,000 unit PO DAILY 02/12/19 [History] RX: Niacin [Niaspan] 500 mg PO HS 02/12/19 [History] RX: Sertraline [Zoloft] 100 mg PO HS 02/12/19 [History] RX: Isosorbide Mononitrate ER [Imdur] 30 mg PO DAILY #30 02/16/19 [Rx] RX: Nitroglycerin Sl Tabs [Nitrostat] 0.4 mg SUBLINGUAL Q5M PRN #25 tab 02/16/19 [Rx] Ferrous Sulfate [Feosol] 325 mg PO DAILY 07/09/22 [History] Losartan [Cozaar] 50 mg PO DAILY 07/09/22 [History] Nicotine 7Mg/24Hr Patch [Habitrol] 1 patch TRANSDERM DAILY 07/09/22 [History] RX: Folic Acid 1 mg PO HS 07/09/22 [History] RX: Rosuvastatin Calcium 5 mg PO HS 07/09/22 [History] Ubidecarenone [Co Q-10] 100 mg PO DAILY 07/09/22 [History] Follow up Appointment(s)/Referral(s): Larry Stevens DO [STAFF PHYSICIAN] - 07/28/22 3:45 pm (follow up is on June, at 3:45 PM) Patient Instructions/Handouts: Moderate Sedation (DC), Angiography (DC)
--- NOTE | 2022-07-13 09:56 | IR ---
EXAMINATION TYPE: IR angio abdominal w runoff DATE OF EXAM: 07/13/2022 COMPARISON: NONE HISTORY: Fluoroscopy time. Fluoroscopy was provided to the referring clinician.
[2022-07-13 15:18] VITALS: BP 141/62; PULSE 46
== END 2022-07-13 13:38 | disposition home or self-care (01) ==
LOC: CATHCVL 07:07
PROVIDERS: ATTEND Surgery
DX: I70.213 Atherosclerosis of native arteries of extremities with intermittent claudication, bilateral legs (principal); I77.1 Stricture of artery; I25.10 Atherosclerotic heart disease of native coronary artery without angina pectoris; E78.5 Hyperlipidemia, unspecified; Z98.891 History of uterine scar from previous surgery; Z95.5 Presence of coronary angioplasty implant and graft; Z88.0 Allergy status to penicillin; Z88.1 Allergy status to other antibiotic agents; Z91.048 Other nonmedicinal substance allergy status
CPT/HCPCS: 36200; 75625; 75716; 76937; 80048; 85025; 99152; C1769 ×4; C1894 ×2; J2250; J2001; J3010; Q9967

== ENCOUNTER 2022-08-25 06:40 | Inpatient (IN) | payer OTHER ==
[~2022-08-25 06:40] MED LIST changes: -ALPRAZolam 0.25 MG TAB PO PRN; -ALPRAZolam 0.5 MG TAB PO PRN; -ASPIRIN 325 MG TAB PO PRN; +DEXAMETHASONE SOD PHOSPHATE 4 MG/ML 1 ML VIAL IV ONE; -HEPARIN SODIUM,PORCINE 10,000 UNIT in SODIUM CHLORIDE 0.9% 1,000 ML IRRIGATION PRN; -HEPARIN SODIUM,PORCINE 2,500 UNIT in SODIUM CHLORIDE 0.9% 250 ML IRRIGATION PRN; +LIDOCAINE 1% (10MG/ML) FOR IV START INTRADERMA PRN; +ONDANSETRON 4 MG/2 ML VIAL IVP ONE; -SODIUM CHLORIDE 0.9% 1,000 ML in EMPTY BAG 1 BAG IV ONE; -ZOLPIDEM 5 MG TAB PO PRN
[2022-08-25] MEDS ORDERED: HYDROmorphone 0.5 MG/0.5 ML SYRINGE IVP PRN (07:00)
[2022-08-25] MEDS ORDERED: LACTATED RINGERS 1,000 ML IV ONE ×2 (07:01→11:53)
[2022-08-25 07:30] LABS: Glucose,Whole Blood 122 mg/dL (70-110)
[2022-08-25] MEDS ORDERED: ONDANSETRON 4 MG/2 ML VIAL IVP ONE (07:41)
[2022-08-25] MEDS ORDERED: DEXAMETHASONE SOD PHOSPHATE 4 MG/ML 1 ML VIAL IVP ONE (07:41)
[2022-08-25 08:12] LABS: Basophils # (A) 0.1 k/uL (0-0.2); Basophils % (A) 1 %; Eosinophils # (A) 0.2 k/uL (0-0.7); Eosinophils % (A) 3 %; HCT 44.3 % (34.0-46.0); HGB 15.3 gm/dL (11.4-16.0); Lymphocytes # (A) 1.9 k/uL (1.0-4.8); Lymphocytes % (A) 29 %; MCH 32.5 pg (25.0-35.0); MCHC 34.6 g/dL (31.0-37.0); MCV 94.1 fL (80.0-100.0); Mean Platelet Volume 7.6; Monocytes # (A) 0.4 k/uL (0-1.0); Monocytes % (A) 7 %; Neutrophils # (A) 3.9 k/uL (1.3-7.7); Neutrophils % (A) 60 %; Platelet Count 266 k/uL (150-450); RBC 4.71 m/uL (3.80-5.40); RDW 12.3 % (11.5-15.5); WBC 6.5 k/uL (3.8-10.6)
[2022-08-25 08:22] LABS: Partial Thromboplastin Time 25.9 sec (22.0-30.0); Prothrombin Time 10.3 sec (9.0-12.0)
[2022-08-25] MEDS ORDERED: MIDAZOLAM 2 MG/2 ML VIAL IVP ONE (08:37)
--- NOTE | 2022-08-25 11:13 | P.ANPRN ---
Procedure Note - Anesthesia - Invasive Line Right Arterial Line Time Out Performed: Yes Date of Procedure: 08/25/22 Time of Procedure: 08:24 Location of Patient: PreOp Preparation: Sterile Prep Arterial Line Location: Radial Ultrasound Used: No Purpose - Visualization and Identification of Vasculature: No Image Stored and Saved: No Narrative: Central line placement per sterile protocol utilized.
[2022-08-25] MEDS ORDERED: fentaNYL (PF) 50 MCG/ML 2 ML AMP ONE (11:51)
[2022-08-25] MEDS ORDERED: PROPOFOL 10 MG/ML 20 ML VIAL IV ONE (11:51)
[2022-08-25] MEDS ORDERED: ePHEDrine 50 MG/ML 1 ML VIAL ONE (11:51)
[2022-08-25] MEDS ORDERED: LIDOCAINE 2% INJ 20 MG/ML (2 ML VIAL) ONE (11:51)
[2022-08-25] MEDS ORDERED: NEOSTIGMINE 1 MG/ML 10 ML VIAL ONE (11:51)
[2022-08-25] MEDS ORDERED: HEPARIN SODIUM,PORCINE 10,000 UNIT/ML 1 ML VIAL ONE (11:51)
[2022-08-25] MEDS ORDERED: ROCURONIUM 10 MG/ML (5 ML VIAL) IV ONE (11:51)
[2022-08-25] MEDS ORDERED: MIDAZOLAM 2 MG/2 ML VIAL ONE (11:51)
[2022-08-25] MEDS ORDERED: HYDROmorphone (PF) 1 MG/ML ONE (11:51)
[2022-08-25] MEDS ORDERED: hydrALAZINE HCL 20 MG/ML 1 ML VIAL ONE (11:51)
[2022-08-25] MEDS ORDERED: SUCCINYLCHOLINE CHLORIDE 200 MG/10 ML VIAL IV ONE (11:51)
[2022-08-25] MEDS ORDERED: GLYCOPYRROLATE 0.2 MG/ML 2 ML VIAL ONE (11:51)
[2022-08-25] MEDS ORDERED: GELATIN SPONGE,ABSORB (LARGE) 1 EACH SPONGE TOPICAL ONE (12:35)
[2022-08-25] MEDS ORDERED: THROMBIN (BOVINE) 5,000 UNIT VIAL TOPICAL ONE (12:37)
[2022-08-25] MEDS ORDERED: HYDROcodone/APAP 5-325MG 1 EACH TAB PO PRN (13:57)
[2022-08-25] MEDS ORDERED: NITROGLYCERIN SL TABS 0.4 MG TAB SUBLINGUAL PRN (13:58)
[2022-08-25] MEDS: LACTATED RINGERS 1,000 ML IV SCH (15:24)
[2022-08-25] MEDS: SODIUM CHLORIDE 0.9% 1,000 ML IV SCH (17:14)
--- NOTE | 2022-08-25 18:46 | P.OP ---
Date of Procedure: 08/25/22 Preoperative Diagnosis: right femoral artery occlusive disease lower extremity claudication and rest pain Postoperative Diagnosis: Same Procedure(s) Performed: Right femoral, superficial femoral and profunda endarterectomy with patch angioplasty Anesthesia: HAIDER Surgeon: Larry Stevens Estimated Blood Loss (ml): 50 Pathology: other (femoral plaque) Condition: stable Disposition: PACU Indications for Procedure: 56 year old female with history of lower extremity claudication, rest pain and had an angiogram that demonstrated right femoral artery and SFA occlusive disease presents today for right femoral endarterectomy. Operative Findings: large calcified occlusion of the common femoral, sfa and profunda. Description of Procedure: After written and informed consent was obtained and all risks, benefits and complications were described the patient was brought to the operative suite and laid in a supine position. The area of the right groin was prepped and draped in the usual fashion. A timeout was performed in usual fashion and antibiotics were administered prior to incision. An oblique incision was then created with a 10 blade scalpel and dissection was carried down to the femoral sheath with electrocautery. The common femoral, profunda and superficial femoral artery was dissected free in a circumferential manner and controlled with vessel loops. The patient was then given heparin and followed with serial ACTs. Proximal and distal control was clamped and arteriotomy was created with an 11 blade scalpel and extended with Ingram scissors. Dense calcified plaque was then removed with a freer elevator and distal feathering was performed. Backbleeding was noted from the SFA and eversion endarterctomy was performed for the profunda. The inflow was assessed and plaque was removed from the external iliac artery with good pulsatile flow noted. All free debris was removed and patch angioplasty was then performed with 6-0 Prolene and a bovine pericardial patch. All control was released and good pulse was noted distal to the patch into the profunda and proximal SFA. The area was cleansed and hemostasis was controlled with gelfoam and thrombin. The area was irrigated with antibiotic solution and incision was closed in a multilayer fashion. The skin was cleansed and Prevena VAC was placed. The patient tolerated the procedure well and had good capillary refill at the conclusion of the procedure.
--- NOTE | 2022-08-25 18:59 | P.CONS ---
History of Present Illness - Reason for Consult Consult date: 08/25/22 Medical management Requesting physician: Larry Stevens - History of Present Illness History of Presenting Illness: Patient is a very pleasant 56-year-old female with a past medical history of occlusive peripheral vascular disease, CAD with stents 2, hypertension, hyperlipidemia, and long-time nicotine dependence. Patient is currently admitted under vascular surgery team status post right femoral endarterectomy and placement of wound VAC. We have been consulted for medical management throughout patient's hospitalization. Patient seen and fully evaluated at bedside. Patient reports feeling a little sleepy but otherwise denies having any complaints of postoperative pain, postoperative nausea and vomiting, or experiencing any headache, lightheadedness, dizziness, chest pain, palpitations, or shortness of breath. Patient has full movement and sensation intact and equal in bilateral lower extremities. Wound VAC in place to right groin. Review of systems: Pertinent positives and negatives as discussed in HPI, a complete review of systems was performed and all other systems are negative. Physical exam: Vital signs reviewed and stable. General: Nontoxic, no distress and appears stated age. Derm: Skin warm and dry, normal coloration for ethnicity. Wound VAC in place right groin. Head: Atraumatic, normocephalic and symmetric. Eyes: EOMs intact, no lid lag, and anicteric sclera Mouth: no lip lesions, mucus membranes moist Cardiovascular: regular rate and rhythm with normal S1S2 systolic murmur, positive posterior tibial pulses bilaterally, and cap refill < 2 seconds. Lungs: Respirations even, regular, and unlabored on room air. Lungs CTA b ilaterally, no rhonchi, no rales, no wheezing, and no accessory muscle usage. GI/: soft, nontender to palpation, no guarding, no appreciable organomegaly. Delgadillo catheter in place. Ext: ROM intact. No gross muscle atrophy, no edema, no contractures. Sensation and movement equal and intact in extremities. Neuro: Speech clear, face symmetrical and CN II-XII grossly intact with no noted focal neuro deficits Psych: Alert and oriented to person, place, time, and situation. Appropriate and pleasant affect. Assessment and Plan of Care: Status post right femoral endarterectomy and placement of wound VAC Occlusive peripheral vascular disease -Management per primary admitting vascular surgery team including DVT prophylaxis, wound VAC management and care, and pain management. -Continue neurovascular checks as directed by vascular surgery including vital signs, peripheral pulse, and dressing checks. -Continue with daily aspirin, atorvastatin History of CAD with stents 2 Hypertension Hyperlipidemia -Home medications reviewed and reordered. Patient to continue daily medication regimen with aspirin, atorvastatin, isosorbide mononitrate, losartan, and metoprolol. -Vital signs every 2 hours Nicotine dependence -Nicotine patch -Strongly encourage smoking cessation. Thank you for allowing us to participate in the care of this pleasant patient. Do not hesitate to contact us with questions. Someone can be reached from the [facility] hospitalist group all hours of the day at [phone] or via Variable. Mino Singleton NP rendered care for this patient independently, reviewed the findings and plan as documented in the note above. I did not physically speak with or examine the patient on this date. Past Medical History Past Medical History: Coronary Artery Disease (CAD), Hyperlipidemia, Hypertension, Myocardial Infarction (CT), Vascular Disorder Additional Past Medical History / Comment(s): VARICOSE veins, edema pao ankles and feet, Last Myocardial Infarction Date:: 2018 History of Any Multi-Drug Resistant Organisms: None Reported Past Surgical History: Section, Heart Catheterization With Stent, Orthopedic Surgery Additional Past Surgical History / Comment(s): Colonoscopy, two Coronary artery stents. pao thumb surgery to remove bone spurs, heart cath Past Anesthesia/Blood Transfusion Reactions: No Reported Reaction Additional Past Anesthesia/Blood Transfusion Reaction / Comm: Never had a blood transfusion Date of Last Stent Placement:: 2018 Smoking Status: Current every day smoker - Past Family History Mother Family Medical History: Cancer Additional Family Medical History / Comment(s): Breast and ovarian cancer. Sister(s) Family Medical History: Cancer Additional Family Medical History / Comment(s): Breast cancer. Another sister from lung cancer. Medications and Allergies Home Medications Medication Instructions Recorded Confirmed Type Aspirin [Adult Low Dose Aspirin EC] 81 mg PO DAILY 10/08/16 08/25/22 History Metoprolol Tartrate 25 mg PO BID 10/08/16 08/25/22 History Cholecalciferol (Vitamin D3) 2,000 unit PO DAILY 02/12/19 08/25/22 History [Vitamin D3] Niacin [Niaspan] 500 mg PO HS 02/12/19 08/25/22 History Sertraline [Zoloft] 100 mg PO HS 02/12/19 08/25/22 History Isosorbide Mononitrate ER [Imdur] 30 mg PO DAILY #30 02/16/19 08/25/22 Rx Nitroglycerin Sl Tabs [Nitrostat] 0.4 mg SUBLINGUAL Q5M PRN #25 tab 02/16/19 08/25/22 Rx Ferrous Sulfate [Iron (65 MG 325 mg PO DAILY 07/09/22 08/25/22 History Elemental)] Folic Acid 1 mg PO HS 07/09/22 08/25/22 History Losartan [Cozaar] 50 mg PO DAILY 07/09/22 08/25/22 History Nicotine 7Mg/24Hr Patch [Habitrol] 14 mg TRANSDERM DAILY 07/09/22 08/25/22 History Rosuvastatin Calcium 5 mg PO HS 07/09/22 08/25/22 History Ubidecarenone [Co Q-10] 100 mg PO DAILY 07/09/22 08/25/22 History Clopidogrel [Plavix] 75 mg PO DAILY #30 tablet 08/26/22 Rx Allergies Allergy/AdvReac Type Severity Reaction Status Date / Time cephalexin [From Keflex] Allergy Rash/Hives Verified 08/25/22 07:00 Penicillins Allergy Rash/Hives Verified 08/25/22 07:00 black mold Allergy Severe head to Uncoded 08/25/22 07:00 toe hives Physical Exam Vitals: Vital Signs Temp Pulse Resp BP BP Pulse Ox 08/25/22 17:11 96.9 F L 63 16 110/66 94 L 08/25/22 15:32 97.7 F 64 14 105/65 94 L 08/25/22 14:45 63 16 110/59 96 08/25/22 14:30 64 16 98/53 99 08/25/22 14:15 97.0 F L 65 16 112/52 96 08/25/22 14:08 73 14 127/59 95 08/25/22 07:02 96.9 F L 56 L 16 1358/67 95 Intake and Output 08/25/22 08/25/22 08/25/22 06:59 14:59 22:59 Intake Total 1900 Output Total 950 Balance 950 Intake: IV 1900 Output: Urine 900 Estimated Blood Loss 50 Other: Voiding Method Indwelling Catheter Weight 91.4 kg 91.4 kg Results CBC & Chem 7: 08/26/22 09:32 08/26/22 09:32 Labs: Abnormal Lab Results - Last 24 Hours (Table) 08/25/22 Range/Units 07:28 POC Glucose (mg/dL) 122 H (70-110) mg/dL
[2022-08-25] MEDS ORDERED: SERTRALINE 100 MG TAB PO SCH (21:00)
[2022-08-25] MEDS ORDERED: ATORVASTATIN 10 MG TAB PO SCH (21:00)
[2022-08-25] MEDS ORDERED: NIACIN TR 500 MG CAPLET PO SCH (21:00)
[2022-08-25] MEDS ORDERED: FOLIC ACID 1 MG TAB PO SCH (21:00)
[2022-08-25] MEDS: METOPROLOL TARTRATE 25 MG TAB PO SCH (21:15)
[2022-08-25] MEDS: MORPHINE SULFATE 2 MG/ML SYRINGE IVP PRN (21:29)
[2022-08-26] MEDS: MORPHINE SULFATE 2 MG/ML SYRINGE IVP PRN (00:47)
[2022-08-26] MEDS: SODIUM CHLORIDE 0.9% 1,000 ML IV SCH (03:54)
[2022-08-26] MEDS: LACTATED RINGERS 1,000 ML IV SCH (06:20)
[2022-08-26] MEDS: METOPROLOL TARTRATE 25 MG TAB PO SCH (08:20)
--- NOTE | 2022-08-26 08:57 | P.PN ---
Subjective Progress Note Date: 08/26/22 Hospital course: Patient is a very pleasant 56-year-old female with a past medical history of occlusive peripheral vascular disease, CAD with stents 2, hypertension, hyperlipidemia, and long-time nicotine dependence. Patient is currently admitted under vascular surgery team status post right femoral, superficial femoral and profunda endarterectomy with patch angioplasty and placement of wound VAC. We have been consulted for medical management throughout patient's hospitalization. Physical exam: Morning labs reviewed and stable. Postop hemoglobin 14.7. Patient has been a mbulating without any reported difficulties. Wound VAC remains in place. Neurovascular checks unremarkable, patient denies having any numbness/tingling/weakness and right leg. She reports mild discomfort with movement but otherwise reports pain is controlled. Vital signs are stable. Medically, patient is stable for discharge once cleared by primary admitting vascular surgery team. Vital signs reviewed and stable. General: Nontoxic, no distress and appears stated age. Derm: Skin warm and dry, normal coloration for ethnicity. Wound VAC in place right groin. Head: Atraumatic, normocephalic and symmetric. Eyes: EOMs intact, no lid lag, and anicteric sclera Mouth: no lip lesions, mucus membranes moist Cardiovascular: regular rate and rhythm with normal S1S2 systolic murmur, positive posterior tibial pulses bilaterally, and cap refill < 2 seconds. Lungs: Respirations even, regular, and unlabored on room air. Lungs CTA bilaterally, no rhonchi, no rales, no wheezing, and no accessory muscle usage. GI/: soft, nontender to palpation, no guarding, no appreciable organomegaly. Delgadillo catheter in place. Ext: ROM intact. No gross muscle atrophy, no edema, no contractures. Sensation and movement equal and intact in extremities. Neuro: Speech clear, face symmetrical and CN II-XII grossly intact with no noted focal neuro deficits Psych: Alert and oriented to person, place, time, and situation. Appropriate and pleasant affect. Assessment and Plan of Care: Status post right femoral, superficial femoral and profunda endarterectomy with patch angioplasty Occlusive peripheral vascular disease -Management per primary admitting vascular surgery team including DVT prophylaxi s, wound VAC management and care, and pain management. -Continue neurovascular checks as directed by vascular surgery including vital signs, peripheral pulse, and dressing checks. -Continue with daily aspirin, atorvastatin -Continue management of wound VAC. History of CAD with stents 2 Hypertension Hyperlipidemia -Home medications reviewed and reordered. Patient to continue daily medication regimen with aspirin, atorvastatin, isosorbide mononitrate, losartan, and metoprolol. -Continue to monitor vital signs every 4 hours. Nicotine dependence -Nicotine patch -Strongly encourage smoking cessation. Thank you for allowing us to participate in the care of this pleasant patient. Do not hesitate to contact us with questions. Someone can be reached from the [facility] hospitalist group all hours of the day at [phone] or via [employer]. Mino Singleton NP rendered care for this patient independently, reviewed the findings and plan as documented in the note above. I did not physically speak with or examine the patient on this date. Objective - Vital Signs Vital signs: Vital Signs Temp 97.9 F 08/26/22 08:00 Pulse 64 08/26/22 08:00 Resp 16 08/26/22 08:00 BP 158/75 08/26/22 08:00 Pulse Ox 95 08/26/22 08:00 FiO2 Intake & Output 08/25/22 08/26/22 08/26/22 18:59 06:59 18:59 Intake Total 1900 160 Output Total 950 775 Balance 950 -615 Weight 91.4 kg Intake: IV 1900 Intake, IV Titration 160 Amount Sodium Chloride 0.9% 1, 160 000 ml @ 80 mls/hr IV . [id number] [facility] Rx#:[id number] Output: Urine 900 775 Estimated Blood Loss 50 Other: Voiding Method Indwelling Catheter Indwelling Catheter - Labs CBC & Chem 7: 08/26/22 09:32 08/26/22 09:32
[2022-08-26] MEDS ORDERED: ASPIRIN 81 MG PO SCH (09:00)
[2022-08-26] MEDS ORDERED: CHOLECALCIFEROL 25 MCG (1000 IU) TABLET PO SCH (09:00)
[2022-08-26] MEDS ORDERED: FERROUS SULFATE 325 MG TAB PO SCH (09:00)
[2022-08-26] MEDS ORDERED: NON FORMULARY DRUG (Ubidecarenone [Co Q-10] 400 MG Capsule) PO SCH (09:00)
[2022-08-26] MEDS ORDERED: NICOTINE 7MG/24HR PATCH TRANSDERM SCH (09:00)
[2022-08-26] MEDS ORDERED: LOSARTAN 50 MG TAB PO SCH (09:00)
[2022-08-26] MEDS ORDERED: ISOSORBIDE MONONITRATE ER 30 MG TAB.ER.24H PO SCH (09:00)
[2022-08-26 10:10] LABS: HCT 42.1 % (34.0-46.0); HGB 14.7 gm/dL (11.4-16.0); MCH 33.6 pg (25.0-35.0); MCHC 34.9 g/dL (31.0-37.0); MCV 96.2 fL (80.0-100.0); Mean Platelet Volume 7.7; Platelet Count 217 k/uL (150-450); RBC 4.37 m/uL (3.80-5.40); RDW 12.3 % (11.5-15.5); WBC 10.2 k/uL (3.8-10.6)
[2022-08-26 10:29] LABS: ALT 19 U/L (4-34); AST 21 U/L (14-36); African American GFR (CKD) >90 (>60 ml/min/1.73 sqM); Alkaline Phosphatase 65 U/L (38-126); Anion Gap 5 mmol/L; Blood Urea Nitrogen 12 mg/dL (7-17); Calcium 9.1 mg/dL (8.4-10.2); Carbon Dioxide 30 mmol/L (22-30); Chloride 104 mmol/L (98-107); Glucose 110 mg/dL (74-99); Non-African American GFR(CKD) >90 (>60 ml/min/1.73 sqM); Potassium 4.1 mmol/L (3.5-5.1); Sodium 139 mmol/L (137-145); Total Bilirubin 0.7 mg/dL (0.2-1.3); Total Protein 6.9 g/dL (6.3-8.2)
[2022-08-26 11:34] VITALS: BP 153/81; PULSE 53; RESP 17; TEMP 98.1
== END 2022-08-26 11:42 | disposition home or self-care (01) | DRG 272 ==
LOC: 2ORMAIN 06:40 → 3SCARD 14:37
PROVIDERS: ADMIT Surgery; ATTEND Surgery
PROC: 04CK3ZZ Extirpation of Matter from Right Femoral Artery, Percutaneous Approach (ICD-10-PCS; principal; 2022-08-25 08:30)
PROC: 4A133B1 Monitoring of Arterial Pressure, Peripheral, Percutaneous Approach (ICD-10-PCS; principal; 2022-08-25 08:30)
PROC: B44FZZ3 Ultrasonography of Right Lower Extremity Arteries, Intravascular (ICD-10-PCS; principal; 2022-08-25 08:30)
PROC: 04U Lower Arteries, Supplement (ICD-10-PCS; principal; 2022-08-25 08:30)
PROC: 2W1NX6Z Compression of Right Upper Leg using Pressure Dressing (ICD-10-PCS; principal; 2022-08-25 08:30)
PROC: 03HY32Z Insertion of Monitoring Device into Upper Artery, Percutaneous Approach (ICD-10-PCS; principal; 2022-08-25 08:30)
PROC: 04CY3ZZ Extirpation of Matter from Lower Artery, Percutaneous Approach (ICD-10-PCS; principal; 2022-08-25 08:30)
PROC: 4A133J1 Monitoring of Arterial Pulse, Peripheral, Percutaneous Approach (ICD-10-PCS; principal; 2022-08-25 08:30)
DX: I70.221 Atherosclerosis of native arteries of extremities with rest pain, right leg (principal); E78.5 Hyperlipidemia, unspecified; F17.210 Nicotine dependence, cigarettes, uncomplicated; I10 Essential (primary) hypertension; Z71.6 Tobacco abuse counseling; I25.10 Atherosclerotic heart disease of native coronary artery without angina pectoris; I25.2 Old myocardial infarction; Z79.02 Long term (current) use of antithrombotics/antiplatelets; Z79.82 Long term (current) use of aspirin; Z79.899 Other long term (current) drug therapy; Z95.5 Presence of coronary angioplasty implant and graft; Z88.0 Allergy status to penicillin; Z88.1 Allergy status to other antibiotic agents
CPT/HCPCS: 80053; 85025; 85027; 85610; 85730; 93005

== ENCOUNTER → 2022-12-16 | Outpatient (CLI) | payer OTHER ==
--- NOTE | 2022-12-16 10:58 | CT ---
EXAMINATION TYPE: CT angio abd aorta w/Runoff CT DLP: 1751 mGycm, Automated exposure control for dose reduction was used. DATE OF EXAM: 12/16/2022 10:06 AM COMPARISON: 07/13/2022 angiogram with runoff. CLINICAL INDICATION:Female, 57 years old with history of I73.9 PERIPHERAL VASCULAR DISEASE;, Left leg numbness. TECHNIQUE: Multiple thin slice sub-millimeter images were obtained through the abdomen, pelvis, and l ower extremities after administration of contrast. 3-D reconstructed images and maximum intensity pr ojection images were obtained of the abdomen, pelvis, and lower extremities. CT Contrast: Contrast used:100ml mL of Isovue 300 with IV Contrast, Oral contrast used: None FINDINGS: CTA Abdomen and pelvis: The abdominal aorta demonstrates mild scattered atherosclerosis. The origins of the celiac artery, superior mesenteric artery and bilateral single renal arteries are patent. The common iliac arteries are patent. The external iliac arteries are patent. There are scattered mild ca lcified atherosclerotic plaque. The anterior tibial and posterior tibial arteries are intact and cros s the ankle. CTA Lower extremities: Calcified plaque limits evaluation of both extremities secondary to blooming artifact. Right: Common femoral artery is patent. The right superficial femoral artery demonstrates scattered a therosclerosis with high-grade stenosis throughout the artery. The popliteal artery is patent with hi gh-grade stenosis secondary to calcified plaque. Left: The common femoral artery is patent. There is high-grade stenosis of the superficial femoral ar mena at multiple locations throughout with at least 90%. There is occlusion in the mid left superfici al femoral artery on series 5 image 275 reconstitution shortly after. Total segment is approximately 8 mm in length. There is a patent popliteal artery with scattered atherosclerosis. The anterior and p osterior tibial arteries are patent and cross the ankle. LOWER CHEST: No evidence of focal consolidation, pneumothorax or pleural effusion. LIVER: Unremarkable GALLBLADDER AND BILE DUCTS: Unremarkable. PANCREAS: Unremarkable. SPLEEN: Unremarkable. ADRENAL GLANDS: Unremarkable. KIDNEYS AND URETERS: No evidence of hydronephrosis or renal calculus. The ureters are unremarkable. Anterior positioning of the right renal sinus and left renal sinus. PELVIS BLADDER: Unremarkable REPRODUCTIVE: Unremarkable. ABDOMEN & PELVIS STOMACH AND BOWEL: No evidence of bowel obstruction. PERITONEUM: No evidence of pneumoperitoneum or free fluid. VASCULATURE: No evidence of aortic aneurysm. MUSCULOSKELETAL: No acute osseous abnormalities LYMPH NODES: No gross evidence for lymphadenopathy. SOFT TISSUE/ABDOMINAL WALL: Postsurgical changes right inguinal region. IMPRESSION 1. Short segment occlusion of the left superficial femoral artery of approximately 8 mm. The right canela perficial femoral artery is patent. 2. Severe bilateral atherosclerosis throughout the superficial femoral arteries with multiple areas o f high-grade stenosis. 3. The anterior tibial and posterior tibial arteries cross the ankle bilaterally.
== END | disposition home or self-care (01) ==
LOC: RADCTMAIN 09:06
PROVIDERS: ATTEND Surgery
DX: I70.213 Atherosclerosis of native arteries of extremities with intermittent claudication, bilateral legs (principal)
CPT/HCPCS: 75635; Q9967

== ENCOUNTER 2023-01-19 08:02 | Day surgery (SDC) | payer OTHER ==
[~2023-01-19 08:02] MED LIST changes: +ALPRAZolam 0.25 MG TAB PO PRN; +ALPRAZolam 0.5 MG TAB PO PRN; +ASPIRIN 325 MG TAB PO PRN; -DEXAMETHASONE SOD PHOSPHATE 4 MG/ML 1 ML VIAL IV ONE; +HEPARIN SODIUM,PORCINE 10,000 UNIT in SODIUM CHLORIDE 0.9% 1,000 ML IRRIGATION PRN; +HEPARIN SODIUM,PORCINE 2,500 UNIT in SODIUM CHLORIDE 0.9% 250 ML IRRIGATION PRN; -LIDOCAINE 1% (10MG/ML) FOR IV START INTRADERMA PRN; -ONDANSETRON 4 MG/2 ML VIAL IVP ONE; +SODIUM CHLORIDE 0.9% 1,000 ML in EMPTY BAG 1 BAG IV ONE; +ZOLPIDEM 5 MG TAB PO PRN
[2023-01-19] MEDS ORDERED: SODIUM CHLORIDE 0.9% 1,000 ML IV ONE (08:16)
[2023-01-19 08:33] VITALS: RESP 16; TEMP 98.4
[2023-01-19 08:37] LABS: Basophils % (A) 1 %; Eosinophils # (A) 0.2 k/uL (0-0.7); Eosinophils % (A) 3 %; HCT 49.6 % (34.0-46.0); HGB 16.4 gm/dL (11.4-16.0); Lymphocytes # (A) 1.8 k/uL (1.0-4.8); Lymphocytes % (A) 29 %; MCH 31.8 pg (25.0-35.0); MCV 96.2 fL (80.0-100.0); Mean Platelet Volume 7.1; Monocytes # (A) 0.3 k/uL (0-1.0); Monocytes % (A) 5 %; Neutrophils # (A) 3.8 k/uL (1.3-7.7); Neutrophils % (A) 61 %; Platelet Count 292 k/uL (150-450); RBC 5.15 m/uL (3.80-5.40); RDW 12.3 % (11.5-15.5); WBC 6.2 k/uL (3.8-10.6)
[2023-01-19 09:07] LABS: African American GFR (CKD) >90 (>60 ml/min/1.73 sqM); Anion Gap 8 mmol/L; Blood Urea Nitrogen 15 mg/dL (7-17); Carbon Dioxide 24 mmol/L (22-30); Chloride 107 mmol/L (98-107); Glucose 102 mg/dL (74-99); Non-African American GFR(CKD) >90 (>60 ml/min/1.73 sqM); Sodium 139 mmol/L (137-145)
[2023-01-19 09:08] LABS: Potassium 5.4 mmol/L (3.5-5.1)
[2023-01-19] MEDS ORDERED: fentaNYL (PF) 50 MCG/ML 2 ML AMP IV ONE (09:43)
[2023-01-19] MEDS ORDERED: MIDAZOLAM 2 MG/2 ML VIAL IV ONE (09:43)
[2023-01-19] MEDS ORDERED: LIDOCAINE 1% INJ 10MG/ML (30 ML VIAL-PF) SQ ONE (09:43)
[2023-01-19] MEDS ORDERED: HEPARIN SODIUM 1,000 UN/ML (10ML VL) IV ONE (09:58)
[2023-01-19] MEDS ORDERED: NITROGLYCERIN 1000MCG/10ML SYRINGE INTRAARTER ONE (11:00)
[2023-01-19] MEDS ORDERED: IOPAMIDOL-250 100ML BTL INTRAARTER ONE ×2 (11:01→11:14)
--- NOTE | 2023-01-19 11:24 | P.OP ---
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 Ultrasound guided left femoral artery access 2. Right lower extremity selective angiogram 3. Percutaneous directional atherectomy of right superficial femoral artery with Hawk One device 4. Percutaneous balloon angioplasty with 5 x 150 mm drug- eluting balloon 5. Percutaneous closure of left femoral artery with Vascade device Surgeon: Larry Stevens DO Anesthesia: conscious sedation with local x 86 mins EBL: 5 mL Complications: none Condition: Stable Findings: Chronic total occlusion of the right SFA measuring approximately 100 mm with reconstitution at the proximal popliteal artery. Chronic total occlusion with dense calcification noted in the popliteal just behind the knee. There is reconstitution and three-vessel takeoff with two-vessel runoff to the ankle. Anterior tibial artery demonstrates decreased flow to the ankle. Indication for procedure: 57-year-old female with previous history of claudication, rest pain who underwent right common femoral artery endarterectomy and patch angioplasty presented back to the office secondary to increased pain in her right lower leg. She was found to have a occlusive disease on CT and presents today for endovascular angiogram with possible intervention. Operative narrative: After written and informed consent was obtained the patient all risks, benefits and complications were described patient is brought to the Waste [facility] and laid supine position. The area of the left groin was prepped and draped in usual sterile fashion. Timeout was performed in normal fashion. Utilizing ultrasound the left femoral artery was accessed and a 6 F sheath was placed. 035 Glidewire was then placed into the aorta followed by an RBI catheter and the right iliac was accessed in an up and over fashion. Selective angiogram was then obtained of the right lower extremity demonstrating chronic total occlusion of the SFA and popliteal behind the knee. Patient was given heparin and followed with ACTs. An 035 Glidewire advantage was then placed in an up and over fashion and the 6 F short sheath was removed and replaced with an up and over 6 F sheath. Selective angiogram was again obtained demonstrating occlusion of the SFA and popliteal artery. Utilizing 035 Glidewire and quick cross catheter the lesion was crossed and selective angiogram distally was obtained demonstrating good intraluminal access. Once across a 6 spider filter was placed and utilizing a 6M Hawk one atherectomy device directional atherectomy was performed with multiple passes. Once completed angiogram was obtained demonstrating improvement of the stenotic area. Balloon angioplasty was then performed with a 5 x 150 mm impact Admiral. Final angiogram demonstrated brisk flow through the SFA with 95% resolution of the occlusion. Attention was then placed to attempt at crossing the popliteal lesion. After multiple wires and catheters the lesion was unable to be crossed due to the highly calcified vessel. Due to the fact that she is experiencing claudication and not rest pain we concluded the procedure for risk of causing any damage below the knee. She would benefit from an endarterectomy of this area in the future if she continues to have pain. All guidewires and catheters were then removed the sheath was removed and replaced with a short 6 F sheath and utilizing a Vascade closure device the access was closed. Pressure was placed for hemostasis. The patient tolerated the procedure well and had palpable femoral pulses, monophasic signal DP and PT on the right and was sent to recovery.
[2023-01-19 14:14] VITALS: BP 153/70; PULSE 44
[2023-01-19] MEDS ORDERED: ACETAMINOPHEN TAB 500 MG TAB PO STA (14:59)
--- NOTE | 2023-01-19 17:16 | IR ---
EXAMINATION TYPE: IR captain waiter femoral popliteal DATE OF EXAM: 01/19/2023 FLUOROSCOPY Fluoroscopy time of 24.4 minutes was used during injection for assessment of the right femoral and po pliteal arteries. 32 image/s document/s the procedure. [id number].
== END 2023-01-19 15:05 | disposition home or self-care (01) ==
LOC: CATHCVL 08:02
PROVIDERS: ATTEND Surgery
DX: I70.213 Atherosclerosis of native arteries of extremities with intermittent claudication, bilateral legs (principal); I70.92 Chronic total occlusion of artery of the extremities; Z79.82 Long term (current) use of aspirin; Z87.891 Personal history of nicotine dependence; Z79.899 Other long term (current) drug therapy
CPT/HCPCS: 37225; 80048; 85025; C1769 ×5; C1894 ×2; C1887; C1714; C1884; C1725; C1760; C2623; J2250; J2001; J3010; J1644; Q9966

== ENCOUNTER 2023-07-12 06:46 | Day surgery (SDC) | payer OTHER ==
[2023-07-07 14:03] VITALS: BMI 35.6
[~2023-07-12 06:46] MED LIST changes: +HEPARIN SODIUM,PORCINE (1 ML) 2,500 UNIT in SODIUM CHLORIDE 0.9% 250 ML IRRIGATION PRN; -HEPARIN SODIUM,PORCINE 2,500 UNIT in SODIUM CHLORIDE 0.9% 250 ML IRRIGATION PRN
[2023-07-12 07:15] LABS: Basophils # (A) 0.1 k/uL (0-0.2); Basophils % (A) 1 %; Eosinophils # (A) 0.2 k/uL (0-0.7); Eosinophils % (A) 2 %; HCT 46.2 % (34.0-46.0); HGB 15.9 gm/dL (11.4-16.0); Lymphocytes # (A) 3.2 k/uL (1.0-4.8); Lymphocytes % (A) 38 %; MCH 32.9 pg (25.0-35.0); MCHC 34.4 g/dL (31.0-37.0); MCV 95.7 fL (80.0-100.0); Mean Platelet Volume 7.2; Monocytes # (A) 0.4 k/uL (0-1.0); Monocytes % (A) 5 %; Neutrophils # (A) 4.3 k/uL (1.3-7.7); Neutrophils % (A) 53 %; Platelet Count 261 k/uL (150-450); RBC 4.82 m/uL (3.80-5.40); RDW 12.4 % (11.5-15.5); WBC 8.2 k/uL (3.8-10.6)
[2023-07-12 07:22] VITALS: RESP 18; TEMP 98.5
[2023-07-12] MEDS ORDERED: LIDOCAINE 1% INJ 10MG/ML (20 ML MDV) ONE (07:26)
[2023-07-12 07:29] LABS: African American GFR (CKD) >90 (>60 ml/min/1.73 sqM); Anion Gap 12 mmol/L; Blood Urea Nitrogen 18 mg/dL (7-17); Calcium 9.7 mg/dL (8.4-10.2); Carbon Dioxide 23 mmol/L (22-30); Chloride 107 mmol/L (98-107); Glucose 99 mg/dL (74-99); Non-African American GFR(CKD) 85 (>60 ml/min/1.73 sqM); Potassium 4.2 mmol/L (3.5-5.1); Sodium 142 mmol/L (137-145)
[2023-07-12] MEDS ORDERED: fentaNYL (PF) 50 MCG/ML 2 ML AMP ONE (08:01)
[2023-07-12] MEDS ORDERED: fentaNYL (PF) 50 MCG/ML 2 ML AMP IVP ONE (08:06)
[2023-07-12] MEDS ORDERED: MIDAZOLAM 2 MG/2 ML VIAL IVP ONE (08:06)
[2023-07-12] MEDS ORDERED: LIDOCAINE 1% INJ 10MG/ML (5 ML VIAL-PF) SQ ONE (08:07)
[2023-07-12] MEDS ORDERED: HEPARIN SODIUM 1,000 UN/ML (10ML VL) ONE (08:21)
[2023-07-12] MEDS ORDERED: HEPARIN SODIUM 1,000 UN/ML (10ML VL) IVP ONE (08:23)
[2023-07-12] MEDS ORDERED: CLOPIDOGREL 75 MG TAB ONE (08:57)
[2023-07-12] MEDS ORDERED: IOPAMIDOL-370 100ML BTL INJ ONE (09:06)
[2023-07-12] MEDS ORDERED: IOPAMIDOL-250 100ML BTL INTRAARTER ONE (09:06)
[2023-07-12] MEDS ORDERED: CLOPIDOGREL 75 MG TAB PO ONE (09:07)
[2023-07-12] MEDS ORDERED: PROTAMINE SULFATE 10 MG/ML 5 ML VIAL ONE (09:09)
[2023-07-12] MEDS ORDERED: PROTAMINE SULFATE 10 MG/ML 5 ML VIAL IVPB ONE (09:11)
--- NOTE | 2023-07-12 09:31 | P.OP ---
Date of Procedure: 07/12/23 Preoperative Diagnosis: Left upper extremity ischemia Left subclavian artery stenosis >60% Postoperative Diagnosis: Left upper extremity limb ischemia Left subclavian artery stenosis greater 90% Procedure(s) Performed: Ultrasound guided left brachial artery access Aortogram with selective left upper extremity angiogram Percutaneous balloon angioplasty of the left subclavian artery Percutaneous transluminal stenting of the left subclavian artery with 8x29mm VBX Conscious sedation x 71 minutes Surgeon: Larry Gomez Estimated Blood Loss (ml): 5 Pathology: none sent Condition: stable Disposition: PACU Indications for Procedure: 57 year old female with history of peripheral arterial disease, pain in the left upper extremity with numbness who underwent arterial Doppler demonstrating .60 WBI and a CTA demonstrating greater than 60% stenosis of the left subclavian artery at the takeoff. She presents today for possible stenting of the left subclavian artery. Operative Findings: >90% stenosis of the left subclavian artery at the takeoff Description of Procedure: After written informed consent patient was brought to [facility] [facility] and laid. The area of the arm was prepped and draped in usual sterile fashion. Timeout was performed in normal fashion. Utilizing ultrasound the left brachial artery was located and shown to be patent without any significant plaque and was accessed with a micro-access needle and upsized utilizing Seldinger technique to a 6- American sheath. 035 Glidewire was then placed and followed by a crossing catheter. Selective angiogram was then obtained of the left lower extremity demonstrating severe calcific stenosis of the left subclavian artery at the takeoff. Utilizing the 035 Glidewire and crossing catheter the lesion was crossed and the catheter was placed into the descending aorta. Aortogram was then obtained demonstrating good intraluminal access with normal-appearing brachiocephalic and carotid vessels at the takeoff. There was severe greater than 90% stenosis at the left subclavian artery. Patient was given 3000 units of heparin at that time and followed with ACTs. 035 Glidewire was then placed and catheter was removed and a 5 x 20 mm balloon was utilized and balloon angioplasty was performed. And gram was again obtained demonstrating improved lumen and decision was made to place a covered stent due to the highly calcified plaque. The 6-American sheath was then upsized to a 7-American sheath. An 8 x 29 mm VBX stent was then placed in normal fashion across lesion. Final aortogram was then obtained after placing a pigtail across into the descending aorta. Final angiogram demonstrating complete resolution of the stenosis with brisk flow to the left upper extremity. All guidewires and catheters were then removed and the sheath was removed and pressure was held for hemostasis. Once hemostatic the area was cleansed and dressings were placed. Patient tolerated procedure well and had a palpable radial pulse at the conclusion of the procedure. Plan - Discharge Summary Discharge Rx Participant: No New Discharge Prescriptions: No Action Metoprolol Tartrate 25 mg PO BID Aspirin [Adult Low Dose Aspirin EC] 81 mg PO DAILY Niacin [Niaspan] 500 mg PO HS Cholecalciferol (Vitamin D3) [Vitamin D3] 2,000 unit PO DAILY Sertraline [Zoloft] 100 mg PO HS Nitroglycerin Sl Tabs [Nitrostat] 0.4 mg SUBLINGUAL Q5M PRN #25 tab PRN Reason: Chest Pain Isosorbide Mononitrate ER [Imdur] 30 mg PO DAILY #30 Rosuvastatin Calcium 5 mg PO HS Losartan [Cozaar] 50 mg PO DAILY Ubidecarenone [Co Q-10] 100 mg PO DAILY Clopidogrel [Plavix] 75 mg PO HS Folic Acid 1 mg PO HS Ferrous Sulfate [Iron (65 MG Elemental)] 325 mg PO DAILY Discharge Medication List Aspirin [Adult Low Dose Aspirin EC] 81 mg PO DAILY 10/08/16 [History] Metoprolol Tartrate 25 mg PO BID 10/08/16 [History] Cholecalciferol (Vitamin D3) [Vitamin D3] 2,000 unit PO DAILY 02/12/19 [History] Niacin [Niaspan] 500 mg PO HS 02/12/19 [History] Sertraline [Zoloft] 100 mg PO HS 02/12/19 [History] Isosorbide Mononitrate ER [Imdur] 30 mg PO DAILY #30 02/16/19 [Rx] Nitroglycerin Sl Tabs [Nitrostat] 0.4 mg SUBLINGUAL Q5M PRN #25 tab 02/16/19 [Rx] Ferrous Sulfate [Iron (65 MG Elemental)] 325 mg PO DAILY 07/09/22 [History] Folic Acid 1 mg PO HS 07/09/22 [History] Losartan [Cozaar] 50 mg PO DAILY 07/09/22 [History] Rosuvastatin Calcium 5 mg PO HS 07/09/22 [History] Ubidecarenone [Co Q-10] 100 mg PO DAILY 07/09/22 [History] Clopidogrel [Plavix] 75 mg PO HS 01/19/23 [History] Follow up Appointment(s)/Referral(s): Larry Gomez DO [STAFF PHYSICIAN] - 1 Week Patient Instructions/Handouts: Peripheral Artery Disease (DC), Moderate Sedation (DC), Peripheral Vascular Stent Placement (DC) Activity/Diet/Wound Care/Special Instructions: AVOID PUSHING, PULLING, LIFTING MORE THAN 5LBS FOR 5 DAYS. OK TO SHOWER TOMORROW, NO SOAKING IN POOLS, SWIMMING, HOT TUBS TO AVOID RISK INFECTION. REMOVE DRESSING BEFORE SHOWER. SIGNS OF INFECTION IE: FEVER, RASH, UNUSUAL DRAINAGE FROM PUNCTURE SITE, HARD KNOT OR SWELLING CONTACT DOCTOR TO BE EVALUATED. FOR BLEEDING FROM SITE, APPLY FIRM PRESSURE TO SITE AND GO TO ER. DO NOT DRIVE SELF. MEDICATION DIRECTED BY DR GOMEZ. Discharge Disposition: HOME SELF-CARE
--- NOTE | 2023-07-12 10:53 | IR ---
EXAMINATION TYPE: IR stent intravas non coronary DATE OF EXAM: 07/12/2023 COMPARISON: NONE HISTORY: Fluoroscopy time. Fluoroscopy was provided to the referring clinician.
[2023-07-12 11:29] VITALS: BP 151/75; PULSE 47
== END 2023-07-12 11:35 | disposition home or self-care (01) ==
LOC: CATHCVL 06:46
PROVIDERS: ATTEND Surgery
DX: I99.8 Other disorder of circulatory system (principal); I70.8 Atherosclerosis of other arteries; F17.210 Nicotine dependence, cigarettes, uncomplicated; F10.90 Alcohol use, unspecified, uncomplicated; Z98.890 Other specified postprocedural states; Z79.899 Other long term (current) drug therapy; Z79.02 Long term (current) use of antithrombotics/antiplatelets; Z79.82 Long term (current) use of aspirin; Z77.120 Contact with and (suspected) exposure to mold (toxic); Z79.1 Long term (current) use of non-steroidal anti-inflammatories (NSAID); Z88.2 Allergy status to sulfonamides; Z88.1 Allergy status to other antibiotic agents
CPT/HCPCS: 36215; 37236; 80048; 85025; C1769 ×3; C1894 ×2; C1887; C1725; C1874; J2250; J2720; J2001; J3010; J1644; Q9966; Q9967

== ENCOUNTER → 2024-02-29 | Outpatient (CLI) | payer MEDICARE ==
--- NOTE | 2024-02-29 09:53 | XR ---
EXAMINATION TYPE: XR foot complete 3 views LT DATE OF EXAM: 02/29/2024 Comparison: None Clinical History: 58-year-old female [id number] LT ANKLE/FOOT PAIN Findings: Bipartite tibial sesamoid. No acute fracture, subluxation, dislocation. Small posterior and plantar h eel spurs. Mild dorsal spurring at the talar neck. No acute fracture, subluxation, dislocation. Impression: Small heel spurs. No acute osseous abnormality seen. If there is a persistent or enlarging palpable a bnormality, consider targeted ultrasound.
== END | disposition home or self-care (01) ==
LOC: RADXRYALE 08:51
PROVIDERS: ATTEND Family Medicine
DX: M77.32 Calcaneal spur, left foot (principal); M85.80 Other specified disorders of bone density and structure, unspecified site

== ENCOUNTER → 2024-05-29 | Outpatient (CLI) | payer MEDICARE, OTHER ==
--- NOTE | 2024-05-29 10:14 | CTL ---
EXAMINATION TYPE: CT Low Dose Lung DATE OF EXAM ORDERED: 05/29/2024 COMPARISON: None HISTORY: . Low Dose CT Lung Screening CT DLP: [address] CTDI: 2.45 mGy IV CONTRAST USED: None. SCREENING VISIT: First visit COMPARISON: None. TECHNIQUE: Low dose computed tomography scan was performed through the chest at 1 millimeter thick se ctions and reconstructed images in the coronal plane at [address] DIAGNOSTIC QUALITY: Satisfactory FINDINGS: LUNG NODULES: Not presentLeft lung: no nodules identified.Right lung: no nodules identified. LUNGS: COPD: Severity: Mild Fibrosis: Severity:None Lymph nodes: None Other findings: None RIGHT PLEURAL SPACE: Effusion: None Calcification: None Thickening: None Pneumothorax: None LEFT PLEURAL SPACE: Effusion: None Calcification: None Thickening: None Pneumothorax: None HEART: Heart Size: Mildly enlarged Coronary calcification: Mild Pericardial effusion: None OTHER FINDINGS: Upper abdomen: No significant abnormality Bony thorax: Degenerative changes Supraclavicular region: No significant abnormalityOther: No significant abnormalityI IMPRESSION: No pulmonary nodularity greater than [address] CHEST RECOMMENDATION: Follow-up screening in one year CT LUNG RAD: LUNG RAD CATEGORY 1 negative [facility]a, , 05/29/2024 10:12 AM
--- NOTE | 2024-05-29 12:03 | BD ---
EXAMINATION TYPE: Axial Bone Density DATE OF EXAM: 05/29/2024 CLINICAL HISTORY: 58 years old Female. ICD-10 CODE: [id number] OTHER DISRD OF BONE DENSITY AND STRUCTURE Height: 63.7in Weight: 204lb FRAX RISK QUESTIONS: Secondary Osteoporosis: Current Tobacco Use: yes RISK FACTORS HISTORY OF: MEDICATIONS: EXAM MEASUREMENTS: Bone mineral densitometry was performed using the [email or web address] System. Bone mineral density as measured about the Lumbar spine is: ----- L1-L4(G/cm2): 1.617 T Score Values are as follows: ----- L1: 1.9 ----- L2: 2.8 ----- L3: 4.8 ----- L4: 4.4 ----- L1-L4: 3.6 Z Score Values are as follows: ----- L1: 2.2 ----- L2: 3.1 ----- L3: 5.1 ----- L4: 4.8 ----- L1-L4: 4.0 First dexa at [facility] Bone mineral density about the R hip (g/cm2): 1.234 Bone mineral density about the L hip (g/cm2): 1.276 T Score values are as follows: -----R Neck: 0.7 -----L Neck: 0.4 -----R Total: 1.8 -----L Total: 2.1 Z Score values are as follows: -----R Neck: 1.4 -----L Neck: 1.1 -----R Total: 2.1 -----L Total: 2.4 First dexa at [facility] FRAX%s: The graph provided illustrates a 5.2% chance for a major osteoporotic fx and a 0.1% chance fo r the hips probability for fx in 10 years time. IMPRESSION: Normal (Values between +1 and -1 indicate normal bone mass). Consider repeating this study in 5 year s or sooner if there is some new clinical indication. NOTE: T-SCORE=SD OF THE YOUNG ADULT MEAN. [facility], , 05/29/2024 12:01 PM
--- NOTE | 2024-05-30 10:31 | MM ---
Reason for Exam: Screening (asymptomatic). Last mammogram was performed 2 year(s) and 2 month(s) ago. Patient History: Menarche at age 11. First Full-Term at age 26. Postmenopausal. Patient used Hormonal Contraceptives for 10 years. Sister had breast cancer, age 44. Mother had breast cancer, age 50. Risk Values: Jeanna 5 year model risk: 5.0%. NCI Lifetime model risk: 23.2%. Prior Study Comparison: 08/08/2019 Bilateral Screening Mammogram, [facility]. 09/04/2020 Bilateral Screening Mammogram, [facility]. 03/10/2022 Bilateral MG 3D screening mammo w/cad, [facility]. Tissue Density: The breasts are heterogeneously dense, which may obscure small masses. Findings: Analyzed By CAD. Right breast: There is no suspicious group of microcalcifications or new suspicious mass. Left breast: There is no suspicious group of microcalcifications or new suspicious mass. Overall Assessment: Negative, BI-RAD 1 Management: Screening Mammogram of both breasts in [address] [facility] will attempt to contact patient to return for supplemental views and ultrasound if indicated. Patient should continue monthly self-breast exams. A clinical breast exam by your physician is recommended on an annual basis. This exam should not preclude additional follow-up of suspicious palpable abnormalities. Note on Jeanna scores and lifetime risk: 1. A Jeanna score greater than 3% is considered moderate risk. If this is the case, consider specialist referral to assess eligibility for a risk reducing agent. 2. If overall lifetime risk for the development of breast cancer is 20% or higher, the patient may qualify for future screening with alternating mammogram and breast MRI. [facility], , 05/30/2024 10:28 AM. Electronically signed and approved by: Santo Kramer DO
== END | disposition home or self-care (01) ==
LOC: RADCTMAIN 08:47
PROVIDERS: ATTEND Family Medicine
DX: Z12.31 Encounter for screening mammogram for malignant neoplasm of breast (principal); Z12.2 Encounter for screening for malignant neoplasm of respiratory organs; M85.80 Other specified disorders of bone density and structure, unspecified site; R92.333 Mammographic heterogeneous density, bilateral breasts; F17.210 Nicotine dependence, cigarettes, uncomplicated; Z78.0 Asymptomatic menopausal state; Z80.3 Family history of malignant neoplasm of breast
CPT/HCPCS: 71271; 77063; 77067; 77080